=== PATIENT | female | born 1990 | race Caucasian/White ===

== ENCOUNTER 2017-03-12 06:00 | Inpatient (IN) | payer BC ==
[~2017-03-12] VITALS: Ht 167.6 cm; Wt 52.6 kg
--- NOTE | 2017-03-12 06:37 | PHYS DOC ---
Past Medical History Past Medical History: No Pertinent History Past Surgical History: Additional Information: DRINKS DAILY; DRINKS RUM Alcohol Use: Heavy Drug Use: None Adult General Chief Complaint Chief Complaint: ABDOMINAL PAIN HPI HPI Patient is a 27 year old female who presents with abdominal pain to suprapubic area. She states it started prior to 1 AM this morning been getting worse. She states yesterday she had 3 loose stools and took Imodium AD which resolved her loose stools. She states she vomited once and denies any blood in her vomit or stools. She states the pain is sharp and is in the suprapubic area and any palpation makes the pain worse in addition any movement. She states she' s never had pain like this before. She does have vaginal discharge which is normal for her. She states she finished her period a few days ago. She states the pain got severe so she did call 911. She received 50 mics of fentanyl in route. She states she's been once and had a . Review of Systems Review of Systems Constitutional: Denies fever or chills [] Eyes: Denies change in visual acuity, redness, or eye pain [] HENT: Denies nasal congestion or sore throat [] Respiratory: Denies cough or shortness of breath [] Cardiovascular: No additional information not addressed in HPI [] GI: Positive for abdominal pain, nausea, vomiting, denies any bloody stools or diarrhea [] : Denies dysuria or hematuria [] Musculoskeletal: Denies back pain or joint pain [] Integument: Denies rash or skin lesions [] Neurologic: Denies headache, focal weakness or sensory changes [] Endocrine: Denies polyuria or polydipsia [] Current Medications Current Medications Current Medications Medications (Trade) Dose Ordered Sig/Jarad Start Time Stop Time Status Last Admin Dose Admin Info (Do NOT chart on this entry -- for MONITORING) 1 each PRN DAILY PRN 03/12/17 08:00 03/14/17 07:59 Iohexol (Omnipaque 240 Mg/ml) 30 ml 1X ONCE 03/12/17 07:45 03/12/17 07:51 DC Iohexol (Omnipaque 300 Mg/ml) 75 ml 1X ONCE 03/12/17 07:45 03/12/17 07:51 DC 03/12/17 07:45 75 ML Morphine Sulfate 2 mg PRN Q15MIN PRN 03/12/17 06:45 03/13/17 06:44 03/12/17 08:02 2 MG Sodium Chloride 1,000 ml @ 1,000 mls/hr Q1H 03/12/17 07:00 03/12/17 07:59 DC 03/12/17 06:44 1,000 MLS/HR Allergies Allergies Allergies Coded Allergies Type Severity Reaction Last Updated Verified No Known Drug Allergies 03/12/17 No Physical Exam Physical Exam Constitutional: Well developed, well nourished, no acute distress, non-toxic appearance. [] HENT: Normocephalic, atraumatic, bilateral external ears normal, oropharynx moist, no oral exudates, nose normal. [] Eyes: PERRLA, EOMI, conjunctiva normal, no discharge. [] Neck: Normal range of motion, no tenderness, supple, no stridor. [] Cardiovascular:Heart rate regular rhythm, no murmur [] Lungs & Thorax: Bilateral breath sounds clear to auscultation [] Abdomen/pelvic: Bowel sounds hypoactive, soft, tender palpation with voluntary guarding in the right lower quadrant and suprapubic area, obturtor sign negative no masses, no pulsatile masses. Normal external genitalia, tender palpation the left adnexal area, no vaginal bleeding or discharge noted Skin: Warm, dry, no erythema, no rash. [] Back: No tenderness, no CVA tenderness. [] Extremities: No tenderness, no cyanosis, no clubbing, ROM intact, no edema. [] Neurologic: Alert and oriented X 3, normal motor function, normal sensory function, no focal deficits noted. [] Psychologic: Affect normal, judgement normal, mood normal. [] Current Patient Data Vital Signs Vital Signs Date Time Temp Pulse Resp B/P (MAP) Pulse Ox O2 Delivery O2 Flow Rate FiO2 03/12/17 08:02 20 99 03/12/17 06:43 Room Air 03/12/17 06:10 98.2 63 121/56 (77) 98.2 Lab Values Laboratory Tests Test 03/12/17 06:05 03/12/17 06:08 White Blood Count 12.0 x10^3/uL (4.0-11.0) H Red Blood Count 4.55 x10^6/uL (3.50-5.40) Hemoglobin 10.7 g/dL (12.0-15.5) L Hematocrit 33.2 % (36.0-47.0) L Mean Corpuscular Volume 73 fL (79-100) L Mean Corpuscular Hemoglobin 24 pg (25-35) L Mean Corpuscular Hemoglobin Concent 32 g/dL (31-37) Red Cell Distribution Width 17.6 % (11.5-14.5) H Platelet Count 393 x10^3/uL (140-400) Neutrophils (%) (Auto) 75 % (31-73) H Lymphocytes (%) (Auto) 21 % (24-48) L Monocytes (%) (Auto) 4 % (0-9) Eosinophils (%) (Auto) 0 % (0-3) Basophils (%) (Auto) 1 % (0-3) Neutrophils # (Auto) 8.9 x10^3uL (1.8-7.7) H Lymphocytes # (Auto) 2.5 x10^3/uL (1.0-4.8) Monocytes # (Auto) 0.4 x10^3/uL (0.0-1.1) Eosinophils # (Auto) 0.0 x10^3/uL (0.0-0.7) Basophils # (Auto) 0.1 x10^3/uL (0.0-0.2) Urine Collection Type Unknown Urine Color Yellow Urine Clarity Clear Urine pH 6.5 Urine Specific [place] 1.020 Urine Protein Negative mg/dL (NEG-TRACE) Urine Glucose (UA) Negative mg/dL (NEG) Urine Ketones (Stick) Negative mg/dL (NEG) Urine Blood Negative (NEG) Urine Nitrite Negative (NEG) Urine Bilirubin Negative (NEG) Urine Urobilinogen Dipstick 0.2 mg/dL (0.2 mg/dL) Urine Leukocyte Esterase Negative (NEG) Urine RBC Occ /HPF (0-2) Urine WBC Occ /HPF (0-4) Urine Squamous Epithelial Cells Mod /LPF Urine Bacteria 0 /HPF (0-FEW) Urine Mucus Mod /LPF Sodium Level 141 mmol/L (136-145) Potassium Level 3.1 mmol/L (3.5-5.1) L Chloride Level 104 mmol/L (98-107) Carbon Dioxide Level 23 mmol/L (21-32) Anion Gap 14 (6-14) Blood Urea Nitrogen 8 mg/dL (7-20) Creatinine 0.7 mg/dL (0.6-1.0) Estimated GFR (Cockcroft-Gault) 100.4 Glucose Level 107 mg/dL (70-99) H Calcium Level 8.9 mg/dL (8.5-10.1) Total Bilirubin 0.8 mg/dL (0.2-1.0) Direct Bilirubin 0.1 mg/dL (0.0-0.2) Aspartate Amino Transferase (AST) 20 U/L (15-37) Alanine Aminotransferase (ALT) 23 U/L (14-59) Alkaline Phosphatase 45 U/L (46-116) L Creatine Kinase 117 U/L (26-192) Creatine Kinase MB (Mass) 0.8 ng/mL (0.0-3.6) Creatine Kinase MB Relative Index 0.7 % (0-4) Total Protein 6.9 g/dL (6.4-8.2) Albumin 4.0 g/dL (3.4-5.0) Lipase 166 U/L (73-393) Urine Opiates Screen Neg (NEG) Urine Methadone Screen Neg (NEG) Urine Barbiturates Neg (NEG) Urine Phencyclidine Screen Neg (NEG) Urine Amphetamine/Methamphetamine Neg (NEG) Urine Benzodiazepines Screen Neg (NEG) Urine Cocaine Screen Neg (NEG) Urine Cannabinoids Screen Neg (NEG) Urine Ethyl Alcohol Neg (NEG) POC Urine HCG, Qualitative Hcg negative (Negative) Laboratory Tests 03/12/17 06:05 Laboratory Tests 03/12/17 06:05 Microbiology 03/12/17 Wet Prep - Final, Complete EKG EKG [] Radiology/Procedures Radiology/Procedures [facility] [address] [place] [address] IMAGING REPORT Signed PATIENT: YESI MARTINEZ ACCOUNT: [id number] : 1990 LOCATION: ER AGE: 27 SEX: F EXAM STATUS: REG ER ORD. PHYSICIAN: JAMAL MILLAN MD REASON: suprapubic pain PROCEDURE: PELVIS COMPLETE Examination: Ultrasound pelvis History: History of suprapubic pain Comparison: None available Findings: The uterus measures 10.0 x 4.4 x 7.0 cm The endometrium measures 1 cm in thickness. The right ovary measures 3.8 x 2.5 x 3.4 cm. The left ovary measures 3.8 x1.7 x 3.1 cm. Blood identified in the right and left ovaries. The cervix measures 4 cm in length. There is no evidence of free fluid identified in the pelvis. Impression: Unremarkable visualized exam. DICTATED and SIGNED BY: ALIYAH ROBINS MD DATE: 03/12/17645 CC: JAMAL MILLAN MD; NO PCP ~ [facility] [address] [place] [address] IMAGING REPORT Signed PATIENT: YESI MARTINEZ ACCOUNT: [id number] : 1990 LOCATION: ER AGE: 27 SEX: F EXAM STATUS: REG ER ORD. PHYSICIAN: JAMAL MILLAN MD REASON: abd pain PROCEDURE: CT ABD PELV W/ORAL&IV CONTRAST EXAM: CT abdomen/pelvis with contrast. HISTORY: Abdominal pain. TECHNIQUE: Computed tomography of the abdomen and pelvis was performed after the intravenous administration of 75 mL Omnipaque 300. COMPARISON: Today's ultrasound. FINDINGS: Lung windows through the visualized portions of the bases reveal no acute abnormality. Bone windows reveal no suspicious lesions. The liver, gallbladder, pancreas, adrenal glands and spleen are unremarkable. A tiny cyst is noted in the right renal interpolar region. The left kidney is unremarkable. There are no pathologically enlarged lymph nodes. A small amount of free pelvic fluid is likely physiologic. There is questionable mild wall thickening at the cecum. The colon is decompressed. There is no clear small bowel wall thickening. The appendix is not inflamed. IMPRESSION: 1. Correlate for mild colitis. No other cause for pain is identified. *One or more of the following individualized dose reduction techniques were utilized for this examination: 1. Automated exposure control. 2. Adjustment of the mA and/or kV according to patient size. 3. Use of iterative reconstruction technique. DICTATED and SIGNED BY: MORELIA HICKEY MD DATE: 03/12/17935 CC: JAMAL MILLAN MD; NO PCP ~ Impressions: Abdominal pain Course & Med Decision Making Course & Med Decision Making Pertinent Labs and Imaging studies reviewed. (See chart for details) CT scan is concerning for mild colitis without any other acute pathology, her ultrasound of her pelvis does not show any acute abnormalities. She's requiring IV pain meds. She doesn't feel comfortable going home. She started on Cipro Flagyl be admitted to the hospitalist in stable condition at this time. Dragon Disclaimer Dragon Disclaimer This electronic medical record was generated, in whole or in part, using a voice recognition dictation system. Departure Departure Impression: Primary Impression: Abdominal pain Disposition: 09 ADMITTED INPATIENT Admitting Physician: Deepika Corbett Condition: STABLE Referrals: NO PCP (PCP) Problem Qualifiers Primary Impression: Abdominal pain Abdominal location: lower abdomen, unspecified Qualified Codes: R10.30 - Lower abdominal pain, unspecified JAMAL MILLAN MD Mar 12, 2017 06:37
[2017-03-12] MEDS: MORPHINE SULFATE 2 MG/ML DISP.SYRIN. IV/SQ PRN ×2 (06:43→08:02)
[2017-03-12] MEDS ORDERED: IV NORMAL SALINE 1000ML BAG 1,000 ML IV SCH (07:00)
[2017-03-12 07:06] LABS: CALCIUM 8.9 mg/dL (8.5-10.1); CREATININE 0.7 mg/dL (0.6-1.0); GFR 100.4; POTASSIUM 3.1 mmol/L (3.5-5.1)
[2017-03-12 07:09] LABS: BILIRUBIN,URINE NEGATIVE (NEG); GLUCOSE,URINE NEGATIVE (NEG); NITRITE,URINE NEGATIVE (NEG); PH,URINE 6.5; PROTEIN,URINE NEGATIVE (NEG-TRACE); UROBILINOGEN,URINE 0.2 mg/dL (0.2 mg/dL)
[2017-03-12 07:14] LABS: DIRECT BILIRUBIN 0.1 mg/dL (0.0-0.2); TOTAL BILIRUBIN 0.8 mg/dL (0.2-1.0); TOTAL PROTEIN 6.9 g/dL (6.4-8.2)
[2017-03-12 07:16] LABS: BARBITURATES NEG (NEG); BENZODIAZEPINES NEG (NEG); CANNABINOIDS NEG (NEG); COCAINE NEG (NEG); METHADONE NEG (NEG); OPIATES NEG (NEG); PHENCYCLIDINE NEG (NEG)
[2017-03-12 07:17] LABS: BASO # 0.1 x10^3/uL (0.0-0.2); BASO % 1 % (0-3); EOS % 0 % (0-3); HEMATOCRIT 33.2 % (36.0-47.0); HEMOGLOBIN 10.7 g/dL (12.0-15.5); LYMPH # 2.5 x10^3/uL (1.0-4.8); LYMPH % 21 % (24-48); MEAN CORPUSCULAR HEMOGLOBIN 24 pg (25-35); MEAN CORPUSCULAR HGB CONC 32 g/dL (31-37); MEAN CORPUSCULAR VOLUME 73 fL (79-100); MONO % 4 % (0-9); NEUT % 75 % (31-73); PLATELET COUNT 393 x10^3/uL (140-400); RED BLOOD COUNT 4.55 x10^6/uL (3.50-5.40); RED CELL DISTRIBUTION WIDTH 17.6 % (11.5-14.5)
[2017-03-12 07:24] LABS: CKMB MASS 0.8 ng/mL (0.0-3.6)
[2017-03-12 07:35] LABS: BACTERIA,URINE 0 /HPF (0-FEW); RBC,URINE OCC /HPF (0-2); SQUAMOUS EPITHELIAL CELL,UR MOD /LPF; WBC,URINE OCC /HPF (0-4)
[2017-03-12] MEDS ORDERED: IOHEXOL 300 MG/ML 75 ML VIAL IV ONE (07:45)
[2017-03-12] MEDS ORDERED: IOHEXOL 240 MG/ML 50ML VIAL. PO ONE (07:45)
[2017-03-12] MEDS ORDERED: CONTRAST GIVEN MC PRN (08:00)
--- NOTE | 2017-03-12 08:51 | RAD ---
Examination: Ultrasound pelvis History: History of suprapubic pain Comparison: None available Findings: The uterus measures 10.0 x 4.4 x 7.0 cm The endometrium measures 1 cm in thickness. The right ovary measures 3.8 x 2.5 x 3.4 cm. The left ovary measures 3.8 x1.7 x 3.1 cm. Blood identified in the right and left ovaries. The cervix measures 4 cm in length. There is no evidence of free fluid identified in the pelvis. Impression: Unremarkable visualized exam.
--- NOTE | 2017-03-12 09:47 | RAD ---
EXAM: CT abdomen/pelvis with contrast. HISTORY: Abdominal pain. TECHNIQUE: Computed tomography of the abdomen and pelvis was performed after the intravenous administration of 75 mL Omnipaque 300. COMPARISON: Today's ultrasound. FINDINGS: Lung windows through the visualized portions of the bases reveal no acute abnormality. Bone windows reveal no suspicious lesions. The liver, gallbladder, pancreas, adrenal glands and spleen are unremarkable. A tiny cyst is noted in the right renal interpolar region. The left kidney is unremarkable. There are no pathologically enlarged lymph nodes. A small amount of free pelvic fluid is likely physiologic. There is questionable mild wall thickening at the cecum. The colon is decompressed. There is no clear small bowel wall thickening. The appendix is not inflamed. IMPRESSION: 1. Correlate for mild colitis. No other cause for pain is identified. *One or more of the following individualized dose reduction techniques were utilized for this examination: 1. Automated exposure control. 2. Adjustment of the mA and/or kV according to patient size. 3. Use of iterative reconstruction technique.
[2017-03-12] MEDS ORDERED: MORPHINE SULFATE 2 MG/ML DISP.SYRIN. IV PRN (10:15)
[2017-03-12] MEDS ORDERED: ONDANSETRON PF 4 MG/2 ML VIAL. IV PRN (10:15)
[2017-03-12] MEDS ORDERED: CIPROFLOXACIN 400MG PREMIX 200 ML IV ONE (11:00)
[2017-03-12 12:05] VITALS: BP 99/59
[2017-03-12] MEDS ORDERED: POTASSIUM CHLORIDE 20 MEQ TABLET.ER. PO ONE (12:45)
[2017-03-12] MEDS ORDERED: IV NORMAL SALINE 1000ML BAG 1,000 ML IV ONE (12:45)
[2017-03-12] MEDS ORDERED: ACETAMINOPHEN 500 MG TABLET PO PRN (12:45)
[2017-03-12] MEDS ORDERED: chlordiazePOXIDE HCL 25 MG CAPSULE PO PRN (12:45)
--- NOTE | 2017-03-12 12:52 | PDOC1 ---
History and Physical Date of Admission Date of Admission DATE: 03/12/17 TIME: 12:44 Identification/Chief Complaint Chief Complaint lower abd pain Problems: Source Source: Caregiver, Chart review, Patient History of Present Illness History of Present Illness 27 y.o Female, otherwise healthy, no meds, lower abd pain at center near the bladder area at 1 or 2 AM today. NO emesis but had 2 episodes lose stool, non bloody, NO fevers ER CT scan shows mild colitis, US pelvisnormal. Never had similar before, MOprhine helps pain,. Admitted and started on diet by ER Hgb 10, MCv 70s - I was not able to ask about menstrual periods as these labs came in late - eval will still be the same with BEAU work up/panel Daily rum drinker Past Medical History Cardiovascular: No pertinent hx Pulmonary: No pertinent hx GI: No pertinent hx Heme/Onc: No pertinent hx Hepatobiliary: No pertinent hx Psych: No pertinent hx Rheumatologic: No pertinent hx Infectious disease: No pertinent hx ENT: No pertinent hx Renal/: No pertinent hx Endocrine: No pertinent hx Dermatology: No pertinent hx Past Surgical History Past Surgical History: No pertinent history Family History Family History: Hypertension Social History Smoke: No ALCOHOL: other (daily rum) Drugs: None Current Problem List Problem List Problems Medical Problems: (1) Abdominal pain Status: Acute Problems: Current Medications Current Medications Current Medications Morphine Sulfate 2 mg PRN Q15MIN PRN IV/SQ PAIN GREATER THAN 3/10 Last administered on 03/12/17 08:02; Start 03/12/17 at 06:45; Stop 03/13/17 at 06:44 Sodium Chloride 1,000 ml @ 1,000 mls/hr Q1H IV Last administered on 03/12/17 06:44; Start 03/12/17 at 07:00; Stop 03/12/17 at 07:59; Status DC Iohexol (Omnipaque 240 Mg/ml) 30 ml 1X ONCE PO ; Start 03/12/17 at 07:45; Stop 03/12/17 at 07:51; Status DC Iohexol (Omnipaque 300 Mg/ml) 75 ml 1X ONCE IV Last administered on 03/12/17 07:45; Start 03/12/17 at 07:45; Stop 03/12/17 at 07:51; Status DC Info (Do NOT chart on this entry -- for MONITORING) 1 each PRN DAILY PRN MC SEE COMMENTS; Start 03/12/17 at 08:00; Stop 03/14/17 at 07:59 Ondansetron HCl (Zofran) 4 mg PRN Q8HRS PRN IV NAUSEA/VOMITING; Start 03/12/17 at 10:15; Stop 03/13/17 at 10:14 Morphine Sulfate 2 mg PRN Q2HR PRN IV PAIN; Start 03/12/17 at 10:15; Stop 03/13 at 10:14 Ciprofloxacin/ Dextrose 200 ml @ 200 mls/hr Q12HR IV ; Start 03/12/17 at 21:00 Metronidazole 100 ml @ 100 mls/hr Q8HRS IV Last administered on 03/12/17t 10: 54; Start 03/12/17 at 11:00 Ciprofloxacin/ Dextrose 200 ml @ 200 mls/hr 1X ONCE IV ; Start 03/12/17 at 11: 00; Stop 03/12/17 at 11:59; Status DC Allergies Allergies: Coded Allergies: No Known Drug Allergies (Unverified , 03/12/17) ROS Review of System as per HPI only Physical Exam General: Alert, Oriented X3, Cooperative, No acute distress HEENT: Atraumatic, PERRLA, EOMI, Mucous membr. moist/pink Lungs: Clear to auscultation, Normal air movement Heart: S1S2, RRR, no thrills, no gallops, no murmurs Cardiovascular: S1, S2 Abdomen: Soft, Other (tender on suprapubic, lower abd area) Rectal Exam: not examined PELVIC: Nml ext genitalia Extremities: No clubbing, No cyanosis, No edema, Normal pulses, No tenderness/ swelling Skin: No rashes, No breakdown, No significant lesion Neuro: Normal gait, Normal speech, Strength at 5/5 X4 ext, Normal tone, Sensation intact, Cranial nerves 3-12 NL, Reflexes 2+ Psych/Mental Status: Mental status NL, Mood NL Vitals Vitals Vital Signs Date Time Temp Pulse Resp B/P (MAP) Pulse Ox O2 Delivery O2 Flow Rate FiO2 03/12/17 12:05 98.1 69 18 99/59 (72) 92 Room Air 98.1 Labs Labs Laboratory Tests Test 03/12/17 06:05 9/28/17 06:08 White Blood Count 12.0 x10^3/uL (4.0-11.0) Red Blood Count 4.55 x10^6/uL (3.50-5.40) Hemoglobin 10.7 g/dL (12.0-15.5) Hematocrit 33.2 % (36.0-47.0) Mean Corpuscular Volume 73 fL (79-100) Mean Corpuscular Hemoglobin 24 pg (25-35) Mean Corpuscular Hemoglobin Concent 32 g/dL (31-37) Red Cell Distribution Width 17.6 % (11.5-14.5) Platelet Count 393 x10^3/uL (140-400) Neutrophils (%) (Auto) 75 % (31-73) Lymphocytes (%) (Auto) 21 % (24-48) Monocytes (%) (Auto) 4 % (0-9) Eosinophils (%) (Auto) 0 % (0-3) Basophils (%) (Auto) 1 % (0-3) Neutrophils # (Auto) 8.9 x10^3uL (1.8-7.7) Lymphocytes # (Auto) 2.5 x10^3/uL (1.0-4.8) Monocytes # (Auto) 0.4 x10^3/uL (0.0-1.1) Eosinophils # (Auto) 0.0 x10^3/uL (0.0-0.7) Basophils # (Auto) 0.1 x10^3/uL (0.0-0.2) Urine Collection Type Unknown Urine Color Yellow Urine Clarity Clear Urine pH 6.5 Urine Specific [place] 1.020 Urine Protein Negative mg/dL (NEG-TRACE) Urine Glucose (UA) Negative mg/dL (NEG) Urine Ketones (Stick) Negative mg/dL (NEG) Urine Blood Negative (NEG) Urine Nitrite Negative (NEG) Urine Bilirubin Negative (NEG) Urine Urobilinogen Dipstick 0.2 mg/dL (0.2 mg/dL) Urine Leukocyte Esterase Negative (NEG) Urine RBC Occ /HPF (0-2) Urine WBC Occ /HPF (0-4) Urine Squamous Epithelial Cells Mod /LPF Urine Bacteria 0 /HPF (0-FEW) Urine Mucus Mod /LPF Sodium Level 141 mmol/L (136-145) Potassium Level 3.1 mmol/L (3.5-5.1) Chloride Level 104 mmol/L (98-107) Carbon Dioxide Level 23 mmol/L (21-32) Anion Gap 14 (6-14) Blood Urea Nitrogen 8 mg/dL (7-20) Creatinine 0.7 mg/dL (0.6-1.0) Estimated GFR (Cockcroft-Gault) 100.4 Glucose Level 107 mg/dL (70-99) Calcium Level 8.9 mg/dL (8.5-10.1) Total Bilirubin 0.8 mg/dL (0.2-1.0) Direct Bilirubin 0.1 mg/dL (0.0-0.2) Aspartate Amino Transf (AST/SGOT) 20 U/L (15-37) Alanine Aminotransferase (ALT/SGPT) 23 U/L (14-59) Alkaline Phosphatase 45 U/L (46-116) Creatine Kinase 117 U/L (26-192) Creatine Kinase MB (Mass) 0.8 ng/mL (0.0-3.6) Creatine Kinase MB Relative Index 0.7 % (0-4) Total Protein 6.9 g/dL (6.4-8.2) Albumin 4.0 g/dL (3.4-5.0) Lipase 166 U/L (73-393) Urine Opiates Screen Neg (NEG) Urine Methadone Screen Neg (NEG) Urine Barbiturates Neg (NEG) Urine Phencyclidine Screen Neg (NEG) Urine Amphetamine/Methamphetamine Neg (NEG) Urine Benzodiazepines Screen Neg (NEG) Urine Cocaine Screen Neg (NEG) Urine Cannabinoids Screen Neg (NEG) Urine Ethyl Alcohol Neg (NEG) Bedside Urine HCG, Qualitative Hcg negative (Negative) Laboratory Tests Test 03/12/17 06:05 03/12/17 06:08 White Blood Count 12.0 x10^3/uL (4.0-11.0) Red Blood Count 4.55 x10^6/uL (3.50-5.40) Hemoglobin 10.7 g/dL (12.0-15.5) Hematocrit 33.2 % (36.0-47.0) Mean Corpuscular Volume 73 fL (79-100) Mean Corpuscular Hemoglobin 24 pg (25-35) Mean Corpuscular Hemoglobin Concent 32 g/dL (31-37) Red Cell Distribution Width 17.6 % (11.5-14.5) Platelet Count 393 x10^3/uL (140-400) Neutrophils (%) (Auto) 75 % (31-73) Lymphocytes (%) (Auto) 21 % (24-48) Monocytes (%) (Auto) 4 % (0-9) Eosinophils (%) (Auto) 0 % (0-3) Basophils (%) (Auto) 1 % (0-3) Neutrophils # (Auto) 8.9 x10^3uL (1.8-7.7) Lymphocytes # (Auto) 2.5 x10^3/uL (1.0-4.8) Monocytes # (Auto) 0.4 x10^3/uL (0.0-1.1) Eosinophils # (Auto) 0.0 x10^3/uL (0.0-0.7) Basophils # (Auto) 0.1 x10^3/uL (0.0-0.2) Urine Collection Type Unknown Urine Color Yellow Urine Clarity Clear Urine pH 6.5 Urine Specific [place] 1.020 Urine Protein Negative mg/dL (NEG-TRACE) Urine Glucose (UA) Negative mg/dL (NEG) Urine Ketones (Stick) Negative mg/dL (NEG) Urine Blood Negative (NEG) Urine Nitrite Negative (NEG) Urine Bilirubin Negative (NEG) Urine Urobilinogen Dipstick 0.2 mg/dL (0.2 mg/dL) Urine Leukocyte Esterase Negative (NEG) Urine RBC Occ /HPF (0-2) Urine WBC Occ /HPF (0-4) Urine Squamous Epithelial Cells Mod /LPF Urine Bacteria 0 /HPF (0-FEW) Urine Mucus Mod /LPF Sodium Level 141 mmol/L (136-145) Potassium Level 3.1 mmol/L (3.5-5.1) Chloride Level 104 mmol/L (98-107) Carbon Dioxide Level 23 mmol/L (21-32) Anion Gap 14 (6-14) Blood Urea Nitrogen 8 mg/dL (7-20) Creatinine 0.7 mg/dL (0.6-1.0) Estimated GFR (Cockcroft-Gault) 100.4 Glucose Level 107 mg/dL (70-99) Calcium Level 8.9 mg/dL (8.5-10.1) Total Bilirubin 0.8 mg/dL (0.2-1.0) Direct Bilirubin 0.1 mg/dL (0.0-0.2) Aspartate Amino Transf (AST/SGOT) 20 U/L (15-37) Alanine Aminotransferase (ALT/SGPT) 23 U/L (14-59) Alkaline Phosphatase 45 U/L (46-116) Creatine Kinase 117 U/L (26-192) Creatine Kinase MB (Mass) 0.8 ng/mL (0.0-3.6) Creatine Kinase MB Relative Index 0.7 % (0-4) Total Protein 6.9 g/dL (6.4-8.2) Albumin 4.0 g/dL (3.4-5.0) Lipase 166 U/L (73-393) Urine Opiates Screen Neg (NEG) Urine Methadone Screen Neg (NEG) Urine Barbiturates Neg (NEG) Urine Phencyclidine Screen Neg (NEG) Urine Amphetamine/Methamphetamine Neg (NEG) Urine Benzodiazepines Screen Neg (NEG) Urine Cocaine Screen Neg (NEG) Urine Cannabinoids Screen Neg (NEG) Urine Ethyl Alcohol Neg (NEG) Bedside Urine HCG, Qualitative Hcg negative (Negative) VTE Prophylaxis Ordered VTE Prophylaxis Devices: Yes VTE Pharmacological Prophylaxi: Yes Assessment/Plan Assessment/Plan 1. MIld colitis 2. Micorcytic anemia 3. Signif etoh drinker (rum everyday) PLAN: Admit 2 MN IV abx Ok for reg diet if not vomting IVF x 1 Check SR Check BEAU panel CIWA seen at SANIA CARPENTER MD Mar 12, 2017 12:52
[2017-03-12 13:05] LABS: % SAT IRON 5 % (15-34); IRON,SERUM 24 ug/dL (50-170)
[2017-03-12] MEDS: ONDANSETRON PF 4 MG/2 ML VIAL. IV PRN ×2 (13:12→21:30)
--- NOTE | 2017-03-12 14:10 | PDOC2 ---
GI CONSULT Reason For Consult: Colitis HPI: HPI: 27 y/o female admitted through the ER. Has actually been ill w/ GI symptoms for a few months. Has had intermittent abdominal pain every few weeks ( generally lower - worse w/ movement or prior to stooling, better when laying on back), occasional vomiting, and irregular bowel habits (describes up to 5-6 watery stools daily or sometimes loose stools or sometimes no stools for several days). Had a "black stool" one time about 2 weeks ago. Has also had heartburn. Was previously taking ibuprofen 600mg QD for migraines. Saw her PCP , was started on Prilosec QD for suspected "ulcer" about 2 months ago. Has helped heartburn. Has been eating well ("a lot") but has lost ~11 pounds. Yesterday she had three loose stools, took an Imodium, then developed severe lower abdominal pain (more intense than usual) around 1:00 a.m. Emesis x 1 related to pain. Her family was ill w/ sinus congestion and diarrhea about 2 weeks ago. No recent atbx use or travel. Lifelong h/o anemia ("since I was a baby"), takes iron intermittently but stops 2/2 heartburn. Believes saw a press secretary years ago. Has heavy periods ("super" tampons every 2 hours) for 6 -7 days every 28 days. No hematemesis or hematochezia. No previous EGD or colonoscopy. No liver, gallbladder, or pancreas history. Labs: WBC 12, Hgb 10.7 w/ low indices and elevated RDW, K+ 3.1, iron deficient. CT w/ questionable mild wall thickening at the cecum. Admitted on IV atbx ( Cipro, Flagyl) and clear liquid diet. PMH: PMH: GERD, anemia, scoliosis/back pain FH: Family History: No pertinent hx (no IBD or GI cancers) Social History: Smoke: No ALCOHOL: other (drinks rum daily) Drugs: None ROS: GEN: Denies fevers, chills, sweats HEENT: +sinus congestion 2 weeks ago CV: Denies chest pain RESP: Denies shortness of air, cough GI: Per HPI : Denies hematuria, dysuria ENDO: +weight loss NEURO: +migraines MSK: +back pain SKIN: Denies jaundice, pruritus Vitals: Vitals: Vital Signs Date Time Temp Pulse Resp B/P (MAP) Pulse Ox O2 Delivery O2 Flow Rate FiO2 03/12/17 13:29 Room Air 03/12/17 12:49 92 03/12/17 12:05 98.1 69 18 99/59 (72) 98.1 Labs: Labs: Laboratory Tests Test 03/12/17 06:00 03/12/17 06:05 03/12/17 06:08 Iron Level 24 ug/dL (50-170) Total Iron Binding Capacity 437 ug/dL (250-450) Iron Saturation 5 % (15-34) White Blood Count 12.0 x10^3/uL (4.0-11.0) Red Blood Count 4.55 x10^6/uL (3.50-5.40) Hemoglobin 10.7 g/dL (12.0-15.5) Hematocrit 33.2 % (36.0-47.0) Mean Corpuscular Volume 73 fL (79-100) Mean Corpuscular Hemoglobin 24 pg (25-35) Mean Corpuscular Hemoglobin Concent 32 g/dL (31-37) Red Cell Distribution Width 17.6 % (11.5-14.5) Platelet Count 393 x10^3/uL (140-400) Neutrophils (%) (Auto) 75 % (31-73) Lymphocytes (%) (Auto) 21 % (24-48) Monocytes (%) (Auto) 4 % (0-9) Eosinophils (%) (Auto) 0 % (0-3) Basophils (%) (Auto) 1 % (0-3) Neutrophils # (Auto) 8.9 x10^3uL (1.8-7.7) Lymphocytes # (Auto) 2.5 x10^3/uL (1.0-4.8) Monocytes # (Auto) 0.4 x10^3/uL (0.0-1.1) Eosinophils # (Auto) 0.0 x10^3/uL (0.0-0.7) Basophils # (Auto) 0.1 x10^3/uL (0.0-0.2) Urine Collection Type Unknown Urine Color Yellow Urine Clarity Clear Urine pH 6.5 Urine Specific [place] 1.020 Urine Protein Negative mg/dL (NEG-TRACE) Urine Glucose (UA) Negative mg/dL (NEG) Urine Ketones (Stick) Negative mg/dL (NEG) Urine Blood Negative (NEG) Urine Nitrite Negative (NEG) Urine Bilirubin Negative (NEG) Urine Urobilinogen Dipstick 0.2 mg/dL (0.2 mg/dL) Urine Leukocyte Esterase Negative (NEG) Urine RBC Occ /HPF (0-2) Urine WBC Occ /HPF (0-4) Urine Squamous Epithelial Cells Mod /LPF Urine Bacteria 0 /HPF (0-FEW) Urine Mucus Mod /LPF Sodium Level 141 mmol/L (136-145) Potassium Level 3.1 mmol/L (3.5-5.1) Chloride Level 104 mmol/L (98-107) Carbon Dioxide Level 23 mmol/L (21-32) Anion Gap 14 (6-14) Blood Urea Nitrogen 8 mg/dL (7-20) Creatinine 0.7 mg/dL (0.6-1.0) Estimated GFR (Cockcroft-Gault) 100.4 Glucose Level 107 mg/dL (70-99) Calcium Level 8.9 mg/dL (8.5-10.1) Total Bilirubin 0.8 mg/dL (0.2-1.0) Direct Bilirubin 0.1 mg/dL (0.0-0.2) Aspartate Amino Transf (AST/SGOT) 20 U/L (15-37) Alanine Aminotransferase (ALT/SGPT) 23 U/L (14-59) Alkaline Phosphatase 45 U/L (46-116) Creatine Kinase 117 U/L (26-192) Creatine Kinase MB (Mass) 0.8 ng/mL (0.0-3.6) Creatine Kinase MB Relative Index 0.7 % (0-4) Total Protein 6.9 g/dL (6.4-8.2) Albumin 4.0 g/dL (3.4-5.0) Lipase 166 U/L (73-393) Urine Opiates Screen Neg (NEG) Urine Methadone Screen Neg (NEG) Urine Barbiturates Neg (NEG) Urine Phencyclidine Screen Neg (NEG) Urine Amphetamine/Methamphetamine Neg (NEG) Urine Benzodiazepines Screen Neg (NEG) Urine Cocaine Screen Neg (NEG) Urine Cannabinoids Screen Neg (NEG) Urine Ethyl Alcohol Neg (NEG) Bedside Urine HCG, Qualitative Hcg negative (Negative) Allergies: Coded Allergies: No Known Drug Allergies (Unverified , 03/12/17) Medications: Current Medications Medications (Trade) Dose Ordered Sig/Jarad Route PRN Reason Start Time Stop Time Status Last Admin Dose Admin Morphine Sulfate 2 mg PRN Q15MIN PRN IV/SQ PAIN GREATER THAN 3/10 03/12/17 06:45 03/12/17 13:24 DC 03/12/17 08:02 Sodium Chloride 1,000 ml @ 1,000 mls/hr Q1H IV 03/12/17 07:00 03/12/17 07:59 DC 03/12/17 06:44 Iohexol (Omnipaque 300 Mg/ml) 75 ml 1X ONCE IV 03/12/17 07:45 03/12/17 07:51 DC 03/12/17 07:45 Morphine Sulfate 2 mg PRN Q2HR PRN IV PAIN 03/12/17 10:15 03/13/17 10:14 03/12/17 12:49 Metronidazole 100 ml @ 100 mls/hr Q8HRS IV 03/12/17 11:00 03/12/17 10:54 Ondansetron HCl (Zofran) 4 mg PRN Q6HRS PRN IV NAUSEA/VOMITING 03/12/17 12:45 03/13/17 12:44 03/12/17 13:12 Imaging: Imaging: Pelv US Impression: Unremarkable visualized exam. CT A/P w/ oral and IV contrast FINDINGS: Lung windows through the visualized portions of the bases reveal no acute abnormality. Bone windows reveal no suspicious lesions. The liver, gallbladder, pancreas, adrenal glands and spleen are unremarkable. A tiny cyst is noted in the right renal interpolar region. The left kidney is unremarkable. There are no pathologically enlarged lymph nodes. A small amount of free pelvic fluid is likely physiologic. There is questionable mild wall thickening at the cecum. The colon is decompressed. There is no clear small bowel wall thickening. The appendix is not inflamed. IMPRESSION: 1. Correlate for mild colitis. No other cause for pain is identified. PE: GEN: NAD HEENT: Atraumatic, PERRL LUNGS: CTAB HEART: RRR ABD: BS+, diffusely tender - moreso BLQ and suprapubic EXTREMITY: No edema SKIN: No rashes, no jaundice NEURO/PSYCH: A & O 3 A/P: A/P: Abd pain, vomiting, irregular bowel habits, weight loss -seems intermittent symptoms for several months, now pain more severe GERD -started Prilosec 2 months ago H/o NSAID use -for migraines, now trying to stay away from ibuprofen BEAU -apparently lifelong history w/ intermittent use of iron -heavy periods Abnormal CT -questionable mild wall thickening at cecum -- Will review w/ Dr. Henderson. Add PPI. MIGNON COLEY Mar 12, 2017 14:10
[2017-03-12 15:00] VITALS: BP 94/55
[2017-03-12] MEDS: THIAMINE 100 MG TABLET. PO SCH (16:03)
[2017-03-12] MEDS: PANTOPRAZOLE 40 MG TABLET.DR. PO SCH (16:03)
[2017-03-12] MEDS: FOLIC ACID 1 MG TABLET. PO SCH (16:03)
[2017-03-12] MEDS: VITAMIN B12,B9,B6 COMPLEX 1 TABLET. PO SCH (16:03)
[2017-03-12 19:00] VITALS: BP 103/63
[2017-03-12] MEDS: oxyCODONE/APAP 5/325 1 TAB TABLET PO PRN (20:02)
[2017-03-12] MEDS: CIPROFLOXACIN 400MG PREMIX 200 ML IV SCH (20:58)
[2017-03-12 23:00] VITALS: BP 94/55
[2017-03-13 03:00] VITALS: BP 92/54
[2017-03-13] MEDS: ONDANSETRON PF 4 MG/2 ML VIAL. IV PRN ×2 (06:20→13:38)
[2017-03-13] MEDS: PANTOPRAZOLE 40 MG TABLET.DR. PO SCH (06:23)
[2017-03-13 06:48] LABS: BASO % 1 % (0-3); EOS % 0 % (0-3); HEMATOCRIT 28.9 % (36.0-47.0); HEMOGLOBIN 9.3 g/dL (12.0-15.5); LYMPH # 2.2 x10^3/uL (1.0-4.8); LYMPH % 26 % (24-48); MEAN CORPUSCULAR HEMOGLOBIN 24 pg (25-35); MEAN CORPUSCULAR HGB CONC 32 g/dL (31-37); MEAN CORPUSCULAR VOLUME 75 fL (79-100); MONO % 5 % (0-9); NEUT % 68 % (31-73); PLATELET COUNT 280 x10^3/uL (140-400); RED BLOOD COUNT 3.88 x10^6/uL (3.50-5.40); RED CELL DISTRIBUTION WIDTH 17.2 % (11.5-14.5); WHITE BLOOD COUNT 8.6 x10^3/uL (4.0-11.0)
[2017-03-13 07:00] VITALS: BP 94/52
[2017-03-13 07:23] LABS: ALBUMIN 3.1 g/dL (3.4-5.0); ALBUMIN/GLOBULIN RATIO 1.1 (1.0-1.7); CALCIUM 8.5 mg/dL (8.5-10.1); CREATININE 0.5 mg/dL (0.6-1.0); POTASSIUM 3.8 mmol/L (3.5-5.1)
[2017-03-13] MEDS: THIAMINE 100 MG TABLET. PO SCH (08:58)
[2017-03-13] MEDS: FOLIC ACID 1 MG TABLET. PO SCH (08:58)
[2017-03-13] MEDS: VITAMIN B12,B9,B6 COMPLEX 1 TABLET. PO SCH (08:59)
[2017-03-13] MEDS: CIPROFLOXACIN 400MG PREMIX 200 ML IV SCH (08:59)
--- NOTE | 2017-03-13 09:48 | PDOC ---
Subjective: Subjective: Pain better. No stools. Would like to eat more. Objective: Vital Signs: Vital Signs Date Time Temp Pulse Resp B/P (MAP) Pulse Ox O2 Delivery O2 Flow Rate FiO2 03/13/17 07:00 97.9 53 18 94/52 (66) 98 Room Air 97.9 Labs: Laboratory Tests Test 03/13/17 05:45 White Blood Count 8.6 x10^3/uL Red Blood Count 3.88 x10^6/uL Hemoglobin 9.3 g/dL Hematocrit 28.9 % Mean Corpuscular Volume 75 fL Mean Corpuscular Hemoglobin 24 pg Mean Corpuscular Hemoglobin Concent 32 g/dL Red Cell Distribution Width 17.2 % Platelet Count 280 x10^3/uL Neutrophils (%) (Auto) 68 % Lymphocytes (%) (Auto) 26 % Monocytes (%) (Auto) 5 % Eosinophils (%) (Auto) 0 % Basophils (%) (Auto) 1 % Neutrophils # (Auto) 5.9 x10^3uL Lymphocytes # (Auto) 2.2 x10^3/uL Monocytes # (Auto) 0.5 x10^3/uL Eosinophils # (Auto) 0.0 x10^3/uL Basophils # (Auto) 0.0 x10^3/uL Sodium Level 143 mmol/L Potassium Level 3.8 mmol/L Chloride Level 109 mmol/L Carbon Dioxide Level 26 mmol/L Anion Gap 8 Blood Urea Nitrogen 5 mg/dL Creatinine 0.5 mg/dL Estimated GFR (Cockcroft-Gault) 148.0 BUN/Creatinine Ratio 10 Glucose Level 83 mg/dL Calcium Level 8.5 mg/dL Total Bilirubin 1.0 mg/dL Aspartate Amino Transf (AST/SGOT) 16 U/L Alanine Aminotransferase (ALT/SGPT) 15 U/L Alkaline Phosphatase 37 U/L Total Protein 6.0 g/dL Albumin 3.1 g/dL Albumin/Globulin Ratio 1.1 PE: GEN: NAD LUNGS: clear HEART: RRR ABD: BS+, slurry control tender - mostly BLQ/suprapubic NEURO/PSYCH: A & O 3 A/P: Abd pain, vomiting, irregular bowel habits, weight loss -for several months -CT w/ questionable mild wall thickening at cecum -GERD on PPI, previous NSAID use BEAU -apparently lifelong history w/ intermittent use of iron -heavy periods, normal pelv US -- On IV atbx - change to PO soon? ADAT. Continue PPI. MIGNON COLEY Mar 13, 2017 09:48
[2017-03-13 11:00] VITALS: BP 105/61
[2017-03-13] MEDS: oxyCODONE/APAP 5/325 1 TAB TABLET PO PRN (11:27)
[2017-03-13] MEDS ORDERED: METOCLOPRAMIDE HCL 10 MG/2 ML VIAL. IV PRN (13:30)
--- NOTE | 2017-03-13 14:06 | PDOC ---
PROGRESS NOTES Chief Complaint Chief Complaint Abd pain ASSESSMENT AND PLAN: 1. Abd pain: improved; CT c/w colitis; pelvic US WNL 2. N/V: appeared to have resolved in AM, but recurrent post lunch. with loss of bowel control/diarrhea. appreciate GI input 3. EtOH abuse: no W/D sx at this time. CIWA 4. Anemia: microcytic. 2/2 menorrhagia, c/w iron deficiency by iron labs. IV venofer x1, then PO daily iron 5. Dispo: not quite ready yet, although motivated History of Present Illness History of Present Illness very nauseous after eating 1/2 of lunch tray, vomiting shortly thereafter. Vitals Vitals Vital Signs Date Time Temp Pulse Resp B/P (MAP) Pulse Ox O2 Delivery O2 Flow Rate FiO2 03/13/17 13:40 100 Room Air 03/13/17 11:00 98.2 64 16 105/61 (76) 98.2 Physical Exam General: Alert, Oriented X3, Cooperative, No acute distress Heart: Regular rate Lungs: Clear Abdomen: Normal bowel sounds, Soft, Other (tender on suprapubic, lower abd area ) Extremities: No edema Skin: No rashes Labs LABS Laboratory Tests Test 03/13/17 05:45 White Blood Count 8.6 x10^3/uL (4.0-11.0) Red Blood Count 3.88 x10^6/uL (3.50-5.40) Hemoglobin 9.3 g/dL (12.0-15.5) Hematocrit 28.9 % (36.0-47.0) Mean Corpuscular Volume 75 fL (79-100) Mean Corpuscular Hemoglobin 24 pg (25-35) Mean Corpuscular Hemoglobin Concent 32 g/dL (31-37) Red Cell Distribution Width 17.2 % (11.5-14.5) Platelet Count 280 x10^3/uL (140-400) Neutrophils (%) (Auto) 68 % (31-73) Lymphocytes (%) (Auto) 26 % (24-48) Monocytes (%) (Auto) 5 % (0-9) Eosinophils (%) (Auto) 0 % (0-3) Basophils (%) (Auto) 1 % (0-3) Neutrophils # (Auto) 5.9 x10^3uL (1.8-7.7) Lymphocytes # (Auto) 2.2 x10^3/uL (1.0-4.8) Monocytes # (Auto) 0.5 x10^3/uL (0.0-1.1) Eosinophils # (Auto) 0.0 x10^3/uL (0.0-0.7) Basophils # (Auto) 0.0 x10^3/uL (0.0-0.2) Sodium Level 143 mmol/L (136-145) Potassium Level 3.8 mmol/L (3.5-5.1) Chloride Level 109 mmol/L (98-107) Carbon Dioxide Level 26 mmol/L (21-32) Anion Gap 8 (6-14) Blood Urea Nitrogen 5 mg/dL (7-20) Creatinine 0.5 mg/dL (0.6-1.0) Estimated GFR (Cockcroft-Gault) 148.0 BUN/Creatinine Ratio 10 (6-20) Glucose Level 83 mg/dL (70-99) Calcium Level 8.5 mg/dL (8.5-10.1) Total Bilirubin 1.0 mg/dL (0.2-1.0) Aspartate Amino Transf (AST/SGOT) 16 U/L (15-37) Alanine Aminotransferase (ALT/SGPT) 15 U/L (14-59) Alkaline Phosphatase 37 U/L (46-116) Total Protein 6.0 g/dL (6.4-8.2) Albumin 3.1 g/dL (3.4-5.0) Albumin/Globulin Ratio 1.1 (1.0-1.7) MOY SIM MD Mar 13, 2017 14:06
[2017-03-13 15:00] VITALS: BP 99/56
[2017-03-13 19:00] VITALS: BP 97/55
[2017-03-13] MEDS: PROCHLORPERAZINE 10 MG/2 ML VIAL. IV PRN (20:14)
[2017-03-13] MEDS: CIPROFLOXACIN HCL 250 MG TABLET. PO SCH (21:02)
[2017-03-13 23:00] VITALS: BP 110/61
[2017-03-14] MEDS: PROCHLORPERAZINE 10 MG/2 ML VIAL. IV PRN ×2 (02:18→08:08)
[2017-03-14 03:00] VITALS: BP 100/52
[2017-03-14 05:02] LABS: BASO % 1 % (0-3); EOS % 1 % (0-3); HEMATOCRIT 28.4 % (36.0-47.0); HEMOGLOBIN 9.1 g/dL (12.0-15.5); LYMPH # 1.2 x10^3/uL (1.0-4.8); LYMPH % 14 % (24-48); MEAN CORPUSCULAR HEMOGLOBIN 24 pg (25-35); MEAN CORPUSCULAR HGB CONC 32 g/dL (31-37); MEAN CORPUSCULAR VOLUME 75 fL (79-100); MONO % 5 % (0-9); NEUT % 80 % (31-73); PLATELET COUNT 258 x10^3/uL (140-400); RED BLOOD COUNT 3.77 x10^6/uL (3.50-5.40); RED CELL DISTRIBUTION WIDTH 17.3 % (11.5-14.5); WHITE BLOOD COUNT 8.7 x10^3/uL (4.0-11.0)
[2017-03-14 05:26] LABS: ALBUMIN 3.2 g/dL (3.4-5.0); ALBUMIN/GLOBULIN RATIO 1.1 (1.0-1.7); CALCIUM 8.2 mg/dL (8.5-10.1); CREATININE 0.6 mg/dL (0.6-1.0); GFR 119.9; MAGNESIUM 1.7 mg/dL (1.8-2.4); POTASSIUM 3.3 mmol/L (3.5-5.1); TOTAL BILIRUBIN 0.8 mg/dL (0.2-1.0)
[2017-03-14] MEDS: PANTOPRAZOLE 40 MG TABLET.DR. PO SCH (06:30)
[2017-03-14 07:00] VITALS: BP 109/64
[2017-03-14] MEDS: THIAMINE 100 MG TABLET. PO SCH (09:00)
[2017-03-14] MEDS: FOLIC ACID 1 MG TABLET. PO SCH (09:00)
[2017-03-14] MEDS: CIPROFLOXACIN HCL 250 MG TABLET. PO SCH ×2 (09:00→21:05)
[2017-03-14] MEDS: VITAMIN B12,B9,B6 COMPLEX 1 TABLET. PO SCH (09:00)
[2017-03-14 11:00] VITALS: BP 99/49
--- NOTE | 2017-03-14 11:51 | PDOC ---
G I PROGRESS NOTE Reason for Follow-up Abd pain/N/V/D Subjective Still nauseated/less diarrhea Physical Exam Lungs clear CV S1 S2 ABD +BS, soft, mild tenderness Review of Relevant I have reviewed the following items daisy (where applicable) has been applied. Labs Laboratory Tests Test 03/13/17 05:45 03/13/17 13:25 03/14/17 04:40 White Blood Count 8.6 x10^3/uL (4.0-11.0) 8.7 x10^3/uL (4.0-11.0) Red Blood Count 3.88 x10^6/uL (3.50-5.40) 3.77 x10^6/uL (3.50-5.40) Hemoglobin 9.3 g/dL (12.0-15.5) 9.1 g/dL (12.0-15.5) Hematocrit 28.9 % (36.0-47.0) 28.4 % (36.0-47.0) Mean Corpuscular Volume 75 fL (79-100) 75 fL (79-100) Mean Corpuscular Hemoglobin 24 pg (25-35) 24 pg (25-35) Mean Corpuscular Hemoglobin Concent 32 g/dL (31-37) 32 g/dL (31-37) Red Cell Distribution Width 17.2 % (11.5-14.5) 17.3 % (11.5-14.5) Platelet Count 280 x10^3/uL (140-400) 258 x10^3/uL (140-400) Neutrophils (%) (Auto) 68 % (31-73) 80 % (31-73) Lymphocytes (%) (Auto) 26 % (24-48) 14 % (24-48) Monocytes (%) (Auto) 5 % (0-9) 5 % (0-9) Eosinophils (%) (Auto) 0 % (0-3) 1 % (0-3) Basophils (%) (Auto) 1 % (0-3) 1 % (0-3) Neutrophils # (Auto) 5.9 x10^3uL (1.8-7.7) 7.0 x10^3uL (1.8-7.7) Lymphocytes # (Auto) 2.2 x10^3/uL (1.0-4.8) 1.2 x10^3/uL (1.0-4.8) Monocytes # (Auto) 0.5 x10^3/uL (0.0-1.1) 0.4 x10^3/uL (0.0-1.1) Eosinophils # (Auto) 0.0 x10^3/uL (0.0-0.7) 0.1 x10^3/uL (0.0-0.7) Basophils # (Auto) 0.0 x10^3/uL (0.0-0.2) 0.0 x10^3/uL (0.0-0.2) Sodium Level 143 mmol/L (136-145) 139 mmol/L (136-145) Potassium Level 3.8 mmol/L (3.5-5.1) 3.3 mmol/L (3.5-5.1) Chloride Level 109 mmol/L (98-107) 105 mmol/L (98-107) Carbon Dioxide Level 26 mmol/L (21-32) 23 mmol/L (21-32) Anion Gap 8 (6-14) 11 (6-14) Blood Urea Nitrogen 5 mg/dL (7-20) 6 mg/dL (7-20) Creatinine 0.5 mg/dL (0.6-1.0) 0.6 mg/dL (0.6-1.0) Estimated GFR (Cockcroft-Gault) 148.0 119.9 BUN/Creatinine Ratio 10 (6-20) 10 (6-20) Glucose Level 83 mg/dL (70-99) 68 mg/dL (70-99) Calcium Level 8.5 mg/dL (8.5-10.1) 8.2 mg/dL (8.5-10.1) Total Bilirubin 1.0 mg/dL (0.2-1.0) 0.8 mg/dL (0.2-1.0) Aspartate Amino Transf (AST/SGOT) 16 U/L (15-37) 13 U/L (15-37) Alanine Aminotransferase (ALT/SGPT) 15 U/L (14-59) 18 U/L (14-59) Alkaline Phosphatase 37 U/L (46-116) 37 U/L (46-116) Total Protein 6.0 g/dL (6.4-8.2) 6.0 g/dL (6.4-8.2) Albumin 3.1 g/dL (3.4-5.0) 3.2 g/dL (3.4-5.0) Albumin/Globulin Ratio 1.1 (1.0-1.7) 1.1 (1.0-1.7) Clostridium difficile Toxin (PCR) Negative (Negative) Magnesium Level 1.7 mg/dL (1.8-2.4) Laboratory Tests Test 03/13/17 13:25 03/14/17 04:40 Clostridium difficile Toxin (PCR) Negative (Negative) White Blood Count 8.7 x10^3/uL (4.0-11.0) Red Blood Count 3.77 x10^6/uL (3.50-5.40) Hemoglobin 9.1 g/dL (12.0-15.5) Hematocrit 28.4 % (36.0-47.0) Mean Corpuscular Volume 75 fL (79-100) Mean Corpuscular Hemoglobin 24 pg (25-35) Mean Corpuscular Hemoglobin Concent 32 g/dL (31-37) Red Cell Distribution Width 17.3 % (11.5-14.5) Platelet Count 258 x10^3/uL (140-400) Neutrophils (%) (Auto) 80 % (31-73) Lymphocytes (%) (Auto) 14 % (24-48) Monocytes (%) (Auto) 5 % (0-9) Eosinophils (%) (Auto) 1 % (0-3) Basophils (%) (Auto) 1 % (0-3) Neutrophils # (Auto) 7.0 x10^3uL (1.8-7.7) Lymphocytes # (Auto) 1.2 x10^3/uL (1.0-4.8) Monocytes # (Auto) 0.4 x10^3/uL (0.0-1.1) Eosinophils # (Auto) 0.1 x10^3/uL (0.0-0.7) Basophils # (Auto) 0.0 x10^3/uL (0.0-0.2) Sodium Level 139 mmol/L (136-145) Potassium Level 3.3 mmol/L (3.5-5.1) Chloride Level 105 mmol/L (98-107) Carbon Dioxide Level 23 mmol/L (21-32) Anion Gap 11 (6-14) Blood Urea Nitrogen 6 mg/dL (7-20) Creatinine 0.6 mg/dL (0.6-1.0) Estimated GFR (Cockcroft-Gault) 119.9 BUN/Creatinine Ratio 10 (6-20) Glucose Level 68 mg/dL (70-99) Calcium Level 8.2 mg/dL (8.5-10.1) Magnesium Level 1.7 mg/dL (1.8-2.4) Total Bilirubin 0.8 mg/dL (0.2-1.0) Aspartate Amino Transf (AST/SGOT) 13 U/L (15-37) Alanine Aminotransferase (ALT/SGPT) 18 U/L (14-59) Alkaline Phosphatase 37 U/L (46-116) Total Protein 6.0 g/dL (6.4-8.2) Albumin 3.2 g/dL (3.4-5.0) Albumin/Globulin Ratio 1.1 (1.0-1.7) Microbiology 03/12/17 Wet Prep - Final, Complete Medications Current Medications Morphine Sulfate 2 mg PRN Q15MIN PRN IV/SQ PAIN GREATER THAN 3/10 Last administered on 03/12/17 08:02; Start 03/12/17 at 06:45; Stop 03/12/17 at 13:24 ; Status DC Sodium Chloride 1,000 ml @ 1,000 mls/hr Q1H IV Last administered on 03/12/17 06:44; Start 03/12/17 at 07:00; Stop 03/12/17 at 07:59; Status DC Iohexol (Omnipaque 240 Mg/ml) 30 ml 1X ONCE PO ; Start 03/12/17 at 07:45; Stop 03/12/17 at 07:51; Status DC Iohexol (Omnipaque 300 Mg/ml) 75 ml 1X ONCE IV Last administered on 03/12/17 07:45; Start 03/12/17 at 07:45; Stop 03/12/17 at 07:51; Status DC Info (Do NOT chart on this entry -- for MONITORING) 1 each PRN DAILY PRN MC SEE COMMENTS; Start 03/12/17 at 08:00; Stop 03/14/17 at 07:59; Status DC Ondansetron HCl (Zofran) 4 mg PRN Q8HRS PRN IV NAUSEA/VOMITING; Start 03/12/17 at 10:15; Stop 03/12/17 at 12:44; Status DC Morphine Sulfate 2 mg PRN Q2HR PRN IV PAIN Last administered on 03/12/17 12:49 ; Start 03/12/17 at 10:15; Stop 03/13/17 at 10:14; Status DC Ciprofloxacin/ Dextrose 200 ml @ 200 mls/hr Q12HR IV Last administered on 03/13 08:59; Start 03/12/17 at 21:00; Stop 03/13/17 at 17:46; Status DC Metronidazole 100 ml @ 100 mls/hr Q8HRS IV Last administered on 03/14/17 06: 30; Start 03/12/17 at 11:00 Ciprofloxacin/ Dextrose 200 ml @ 200 mls/hr 1X ONCE IV Last administered on 14:35; Start 03/12/17 at 11:00; Stop 03/12/17 at 11:59; Status DC Ondansetron HCl (Zofran) 4 mg PRN Q6HRS PRN IV NAUSEA/VOMITING Last administered on 03/13/17 06:20; Start 03/12/17 at 12:45; Stop 03/13/17 at 12:44 ; Status DC Acetaminophen (Tylenol) 500 mg PRN Q6HRS PRN PO MILD PAIN / TEMP Last administered on 03/13/17 14:59; Start 03/12/17 at 12:45 Oxycodone/ Acetaminophen (Percocet 5/325) 1 tab PRN Q4HRS PRN PO PAIN Last administered on 03/13/17 11:27; Start 03/12/17 at 12:45 Sodium Chloride 1,000 ml @ 100 mls/hr 1X ONCE IV Last administered on 16:04; Start 03/12/17 at 12:45; Stop 03/12/17 at 22:44; Status DC Potassium Chloride (Klor-Con) 40 meq 1X ONCE PO Last administered on 16:03; Start 03/12/17 at 12:45; Stop 03/12/17 at 12:48; Status DC Chlordiazepoxide (Librium) 25 mg PRN Q6HRS PRN PO ANXIETY / AGITATION; Start at 12:45 Folic Acid (Folic Acid) 1 mg DAILY PO Last administered on 03/13/17 08:58; Start 03/12/17 at 13:00 Thiamine Mononitrate (Vitamin B-1) 100 mg DAILY PO Last administered on 08:58; Start 03/12/17 at 13:00 Vitamin B Complex (Folbic Tablet) 1 tab DAILY PO Last administered on 08:59; Start 03/12/17 at 13:00 Pantoprazole Sodium (Protonix) 40 mg DAILYAC PO Last administered on 03/14/17 06:30; Start 03/12/17 at 16:30 Ondansetron HCl (Zofran) 4 mg PRN Q6HRS PRN IV NAUSEA/VOMITING Last administered on 03/13/17 13:38; Start 03/13/17 at 13:30 Metoclopramide HCl (Reglan) 10 mg PRN Q6HRS PRN IV NAUSEA/VOMITING Last administered on 03/13/17 14:59; Start 03/13/17 at 13:30; Stop 03/13/17 at 18:25 ; Status DC Ciprofloxacin (Cipro) 500 mg BID PO Last administered on 03/13/17 21:02; Start 03/13/17 at 21:00 Lorazepam (Ativan) 1 mg 1X ONCE IV Last administered on 03/13/17 18:35; Start 03/13/17 at 18:30; Stop 03/13/17 at 18:31; Status DC Prochlorperazine Edisylate (Compazine) 10 mg PRN Q6HRS PRN IV NAUSEA/VOMITING Last administered on 03/14/17 08:08; Start 03/13/17 at 18:30 Vitals/I & O Vital Sign - Last 24 Hours 03/13/17 03/13/17 03/13/17 03/13/17 13:40 15:00 19:00 20:00 Temp 97.9 99.5 97.9 99.5 Pulse 52 58 Resp 16 16 B/P (MAP) 99/56 (70) 97/55 (69) Pulse Ox 100 99 99 O2 Delivery Room Air Room Air Room Air Room Air 03/13/17 03/14/17 03/14/17 03/14/17 23:00 03:00 07:00 07:45 Temp 98.5 98.0 97.7 98.5 98.0 97.7 Pulse 54 63 83 Resp 16 16 18 B/P (MAP) 110/61 (77) 100/52 (68) 109/64 (79) Pulse Ox 99 97 97 O2 Delivery Room Air Room Air Room Air Room Air 03/14/17 11:00 Temp 97.9 97.9 Pulse 65 Resp 16 B/P (MAP) 99/49 (66) Pulse Ox 97 O2 Delivery Room Air Intake and Output 03/14/17 03/14/17 03/15/17 15:00 23:00 07:00 Output Total 550 ml Balance -550 ml Problem List Problems Medical Problems: (1) Abdominal pain Status: Acute Assessment Abd pain- with possible colitis, nausea persists, if no improvement with medical therpay, hepatobiliary imaging and EGD next week ROCIO ZAMUDIO MD Mar 14, 2017 11:51
[2017-03-14] MEDS ORDERED: MAGNESIUM SULFATE 2GM 50 ML IV ONE (13:15)
[2017-03-14] MEDS ORDERED: POTASSIUM CHLORIDE 20 MEQ TABLET.ER. PO ONE (13:15)
--- NOTE | 2017-03-14 13:26 | PDOC ---
PROGRESS NOTES Chief Complaint Chief Complaint 1. MIld colitis 2. Micorcytic anemia 3. Signif etoh drinker (rum everyday) 4. Hypokalemia 5. Hypomagnesemia History of Present Illness History of Present Illness Still nausea and very minimal PO K low mAg low GI note reviewed, plans of likely EGD and cscope thursday bec of no improvement Off IV abx ON PO flagyl for the mild colitis on CT PLAN: MAg sulfate 2 gms IV x 1 Start K containing IVF Kcl 20 IV x 1 EGD nd c scope plans thursday ANti nausea meds Vitals Vitals Vital Signs Date Time Temp Pulse Resp B/P (MAP) Pulse Ox O2 Delivery O2 Flow Rate FiO2 03/14/17 11:00 97.9 65 16 99/49 (66) 97 Room Air 97.9 Physical Exam General: Alert, Oriented X3, Cooperative, No acute distress Heart: Regular rate Lungs: Clear Abdomen: Normal bowel sounds, Soft, Other (tender on suprapubic, lower abd area ) Extremities: No edema Skin: No rashes Labs LABS Laboratory Tests Test 03/13/17 13:25 03/14/17 04:40 Clostridium difficile Toxin (PCR) Negative (Negative) White Blood Count 8.7 x10^3/uL (4.0-11.0) Red Blood Count 3.77 x10^6/uL (3.50-5.40) Hemoglobin 9.1 g/dL (12.0-15.5) Hematocrit 28.4 % (36.0-47.0) Mean Corpuscular Volume 75 fL (79-100) Mean Corpuscular Hemoglobin 24 pg (25-35) Mean Corpuscular Hemoglobin Concent 32 g/dL (31-37) Red Cell Distribution Width 17.3 % (11.5-14.5) Platelet Count 258 x10^3/uL (140-400) Neutrophils (%) (Auto) 80 % (31-73) Lymphocytes (%) (Auto) 14 % (24-48) Monocytes (%) (Auto) 5 % (0-9) Eosinophils (%) (Auto) 1 % (0-3) Basophils (%) (Auto) 1 % (0-3) Neutrophils # (Auto) 7.0 x10^3uL (1.8-7.7) Lymphocytes # (Auto) 1.2 x10^3/uL (1.0-4.8) Monocytes # (Auto) 0.4 x10^3/uL (0.0-1.1) Eosinophils # (Auto) 0.1 x10^3/uL (0.0-0.7) Basophils # (Auto) 0.0 x10^3/uL (0.0-0.2) Sodium Level 139 mmol/L (136-145) Potassium Level 3.3 mmol/L (3.5-5.1) Chloride Level 105 mmol/L (98-107) Carbon Dioxide Level 23 mmol/L (21-32) Anion Gap 11 (6-14) Blood Urea Nitrogen 6 mg/dL (7-20) Creatinine 0.6 mg/dL (0.6-1.0) Estimated GFR (Cockcroft-Gault) 119.9 BUN/Creatinine Ratio 10 (6-20) Glucose Level 68 mg/dL (70-99) Calcium Level 8.2 mg/dL (8.5-10.1) Magnesium Level 1.7 mg/dL (1.8-2.4) Total Bilirubin 0.8 mg/dL (0.2-1.0) Aspartate Amino Transf (AST/SGOT) 13 U/L (15-37) Alanine Aminotransferase (ALT/SGPT) 18 U/L (14-59) Alkaline Phosphatase 37 U/L (46-116) Total Protein 6.0 g/dL (6.4-8.2) Albumin 3.2 g/dL (3.4-5.0) Albumin/Globulin Ratio 1.1 (1.0-1.7) Review of Systems Review of Systems nasuea, emesis, lower abd pain Assessment and Plan Assessmemt and Plan Problems Medical Problems: (1) Abdominal pain Status: Acute Problems: Comment Review of Relevant I have reviewed the following items daisy (where applicable) has been applied. Labs Laboratory Tests Test 03/13/17 05:45 03/13/17 13:25 03/14/17 04:40 White Blood Count 8.6 x10^3/uL (4.0-11.0) 8.7 x10^3/uL (4.0-11.0) Red Blood Count 3.88 x10^6/uL (3.50-5.40) 3.77 x10^6/uL (3.50-5.40) Hemoglobin 9.3 g/dL (12.0-15.5) 9.1 g/dL (12.0-15.5) Hematocrit 28.9 % (36.0-47.0) 28.4 % (36.0-47.0) Mean Corpuscular Volume 75 fL (79-100) 75 fL (79-100) Mean Corpuscular Hemoglobin 24 pg (25-35) 24 pg (25-35) Mean Corpuscular Hemoglobin Concent 32 g/dL (31-37) 32 g/dL (31-37) Red Cell Distribution Width 17.2 % (11.5-14.5) 17.3 % (11.5-14.5) Platelet Count 280 x10^3/uL (140-400) 258 x10^3/uL (140-400) Neutrophils (%) (Auto) 68 % (31-73) 80 % (31-73) Lymphocytes (%) (Auto) 26 % (24-48) 14 % (24-48) Monocytes (%) (Auto) 5 % (0-9) 5 % (0-9) Eosinophils (%) (Auto) 0 % (0-3) 1 % (0-3) Basophils (%) (Auto) 1 % (0-3) 1 % (0-3) Neutrophils # (Auto) 5.9 x10^3uL (1.8-7.7) 7.0 x10^3uL (1.8-7.7) Lymphocytes # (Auto) 2.2 x10^3/uL (1.0-4.8) 1.2 x10^3/uL (1.0-4.8) Monocytes # (Auto) 0.5 x10^3/uL (0.0-1.1) 0.4 x10^3/uL (0.0-1.1) Eosinophils # (Auto) 0.0 x10^3/uL (0.0-0.7) 0.1 x10^3/uL (0.0-0.7) Basophils # (Auto) 0.0 x10^3/uL (0.0-0.2) 0.0 x10^3/uL (0.0-0.2) Sodium Level 143 mmol/L (136-145) 139 mmol/L (136-145) Potassium Level 3.8 mmol/L (3.5-5.1) 3.3 mmol/L (3.5-5.1) Chloride Level 109 mmol/L (98-107) 105 mmol/L (98-107) Carbon Dioxide Level 26 mmol/L (21-32) 23 mmol/L (21-32) Anion Gap 8 (6-14) 11 (6-14) Blood Urea Nitrogen 5 mg/dL (7-20) 6 mg/dL (7-20) Creatinine 0.5 mg/dL (0.6-1.0) 0.6 mg/dL (0.6-1.0) Estimated GFR (Cockcroft-Gault) 148.0 119.9 BUN/Creatinine Ratio 10 (6-20) 10 (6-20) Glucose Level 83 mg/dL (70-99) 68 mg/dL (70-99) Calcium Level 8.5 mg/dL (8.5-10.1) 8.2 mg/dL (8.5-10.1) Total Bilirubin 1.0 mg/dL (0.2-1.0) 0.8 mg/dL (0.2-1.0) Aspartate Amino Transf (AST/SGOT) 16 U/L (15-37) 13 U/L (15-37) Alanine Aminotransferase (ALT/SGPT) 15 U/L (14-59) 18 U/L (14-59) Alkaline Phosphatase 37 U/L (46-116) 37 U/L (46-116) Total Protein 6.0 g/dL (6.4-8.2) 6.0 g/dL (6.4-8.2) Albumin 3.1 g/dL (3.4-5.0) 3.2 g/dL (3.4-5.0) Albumin/Globulin Ratio 1.1 (1.0-1.7) 1.1 (1.0-1.7) Clostridium difficile Toxin (PCR) Negative (Negative) Magnesium Level 1.7 mg/dL (1.8-2.4) Laboratory Tests Test 03/13/17 13:25 03/14/17 04:40 Clostridium difficile Toxin (PCR) Negative (Negative) White Blood Count 8.7 x10^3/uL (4.0-11.0) Red Blood Count 3.77 x10^6/uL (3.50-5.40) Hemoglobin 9.1 g/dL (12.0-15.5) Hematocrit 28.4 % (36.0-47.0) Mean Corpuscular Volume 75 fL (79-100) Mean Corpuscular Hemoglobin 24 pg (25-35) Mean Corpuscular Hemoglobin Concent 32 g/dL (31-37) Red Cell Distribution Width 17.3 % (11.5-14.5) Platelet Count 258 x10^3/uL (140-400) Neutrophils (%) (Auto) 80 % (31-73) Lymphocytes (%) (Auto) 14 % (24-48) Monocytes (%) (Auto) 5 % (0-9) Eosinophils (%) (Auto) 1 % (0-3) Basophils (%) (Auto) 1 % (0-3) Neutrophils # (Auto) 7.0 x10^3uL (1.8-7.7) Lymphocytes # (Auto) 1.2 x10^3/uL (1.0-4.8) Monocytes # (Auto) 0.4 x10^3/uL (0.0-1.1) Eosinophils # (Auto) 0.1 x10^3/uL (0.0-0.7) Basophils # (Auto) 0.0 x10^3/uL (0.0-0.2) Sodium Level 139 mmol/L (136-145) Potassium Level 3.3 mmol/L (3.5-5.1) Chloride Level 105 mmol/L (98-107) Carbon Dioxide Level 23 mmol/L (21-32) Anion Gap 11 (6-14) Blood Urea Nitrogen 6 mg/dL (7-20) Creatinine 0.6 mg/dL (0.6-1.0) Estimated GFR (Cockcroft-Gault) 119.9 BUN/Creatinine Ratio 10 (6-20) Glucose Level 68 mg/dL (70-99) Calcium Level 8.2 mg/dL (8.5-10.1) Magnesium Level 1.7 mg/dL (1.8-2.4) Total Bilirubin 0.8 mg/dL (0.2-1.0) Aspartate Amino Transf (AST/SGOT) 13 U/L (15-37) Alanine Aminotransferase (ALT/SGPT) 18 U/L (14-59) Alkaline Phosphatase 37 U/L (46-116) Total Protein 6.0 g/dL (6.4-8.2) Albumin 3.2 g/dL (3.4-5.0) Albumin/Globulin Ratio 1.1 (1.0-1.7) Microbiology 03/12/17 Wet Prep - Final, Complete Medications Current Medications Morphine Sulfate 2 mg PRN Q15MIN PRN IV/SQ PAIN GREATER THAN 3/10 Last administered on 03/12/17 08:02; Start 03/12/17 at 06:45; Stop 03/12/17 at 13:24 ; Status DC Sodium Chloride 1,000 ml @ 1,000 mls/hr Q1H IV Last administered on 03/12/17 06:44; Start 03/12/17 at 07:00; Stop 03/12/17 at 07:59; Status DC Iohexol (Omnipaque 240 Mg/ml) 30 ml 1X ONCE PO ; Start 03/12/17 at 07:45; Stop 03/12/17 at 07:51; Status DC Iohexol (Omnipaque 300 Mg/ml) 75 ml 1X ONCE IV Last administered on 03/12/17 07:45; Start 03/12/17 at 07:45; Stop 03/12/17 at 07:51; Status DC Info (Do NOT chart on this entry -- for MONITORING) 1 each PRN DAILY PRN MC SEE COMMENTS; Start 03/12/17 at 08:00; Stop 03/14/17 at 07:59; Status DC Ondansetron HCl (Zofran) 4 mg PRN Q8HRS PRN IV NAUSEA/VOMITING; Start 03/12/17 at 10:15; Stop 03/12/17 at 12:44; Status DC Morphine Sulfate 2 mg PRN Q2HR PRN IV PAIN Last administered on 03/12/17 12:49 ; Start 03/12/17 at 10:15; Stop 03/13/17 at 10:14; Status DC Ciprofloxacin/ Dextrose 200 ml @ 200 mls/hr Q12HR IV Last administered on 03/13 08:59; Start 03/12/17 at 21:00; Stop 03/13/17 at 17:46; Status DC Metronidazole 100 ml @ 100 mls/hr Q8HRS IV Last administered on 03/14/17 06: 30; Start 03/12/17 at 11:00; Stop 03/14/17 at 13:05; Status DC Ciprofloxacin/ Dextrose 200 ml @ 200 mls/hr 1X ONCE IV Last administered on 14:35; Start 03/12/17 at 11:00; Stop 03/12/17 at 11:59; Status DC Ondansetron HCl (Zofran) 4 mg PRN Q6HRS PRN IV NAUSEA/VOMITING Last administered on 03/13/17 06:20; Start 03/12/17 at 12:45; Stop 03/13/17 at 12:44 ; Status DC Acetaminophen (Tylenol) 500 mg PRN Q6HRS PRN PO MILD PAIN / TEMP Last administered on 03/13/17 14:59; Start 03/12/17 at 12:45 Oxycodone/ Acetaminophen (Percocet 5/325) 1 tab PRN Q4HRS PRN PO PAIN Last administered on 03/13/17 11:27; Start 03/12/17 at 12:45 Sodium Chloride 1,000 ml @ 100 mls/hr 1X ONCE IV Last administered on 16:04; Start 03/12/17 at 12:45; Stop 03/12/17 at 22:44; Status DC Potassium Chloride (Klor-Con) 40 meq 1X ONCE PO Last administered on 16:03; Start 03/12/17 at 12:45; Stop 03/12/17 at 12:48; Status DC Chlordiazepoxide (Librium) 25 mg PRN Q6HRS PRN PO ANXIETY / AGITATION; Start at 12:45 Folic Acid (Folic Acid) 1 mg DAILY PO Last administered on 03/13/17 08:58; Start 03/12/17 at 13:00 Thiamine Mononitrate (Vitamin B-1) 100 mg DAILY PO Last administered on 08:58; Start 03/12/17 at 13:00 Vitamin B Complex (Folbic Tablet) 1 tab DAILY PO Last administered on 08:59; Start 03/12/17 at 13:00 Pantoprazole Sodium (Protonix) 40 mg DAILYAC PO Last administered on 03/14/17 06:30; Start 03/12/17 at 16:30 Ondansetron HCl (Zofran) 4 mg PRN Q6HRS PRN IV NAUSEA/VOMITING Last administered on 03/13/17 13:38; Start 03/13/17 at 13:30 Metoclopramide HCl (Reglan) 10 mg PRN Q6HRS PRN IV NAUSEA/VOMITING Last administered on 03/13/17 14:59; Start 03/13/17 at 13:30; Stop 03/13/17 at 18:25 ; Status DC Ciprofloxacin (Cipro) 500 mg BID PO Last administered on 03/13/17 21:02; Start 03/13/17 at 21:00 Lorazepam (Ativan) 1 mg 1X ONCE IV Last administered on 03/13/17 18:35; Start 03/13/17 at 18:30; Stop 03/13/17 at 18:31; Status DC Prochlorperazine Edisylate (Compazine) 10 mg PRN Q6HRS PRN IV NAUSEA/VOMITING Last administered on 03/14/17 08:08; Start 03/13/17 at 18:30 Metronidazole (Flagyl) 500 mg Q8HRS PO ; Start 03/14/17 at 14:00 Potassium Chloride (Klor-Con) 40 meq 1X ONCE PO ; Start 03/14/17 at 13:15; Stop 03/14/17 at 13:16; Status DC Magnesium Sulfate/ Dextrose 50 ml @ 25 mls/hr 1X ONCE IV ; Start 03/14/17 at 13 :15; Stop 03/14/17 at 15:14 Vitals/I & O Vital Sign - Last 24 Hours 03/13/17 03/13/17 03/13/17 03/13/17 13:40 15:00 19:00 20:00 Temp 97.9 99.5 97.9 99.5 Pulse 52 58 Resp 16 16 B/P (MAP) 99/56 (70) 97/55 (69) Pulse Ox 100 99 99 O2 Delivery Room Air Room Air Room Air Room Air 03/13/17 03/14/17 03/14/17 03/14/17 23:00 03:00 07:00 07:45 Temp 98.5 98.0 97.7 98.5 98.0 97.7 Pulse 54 63 83 Resp 16 16 18 B/P (MAP) 110/61 (77) 100/52 (68) 109/64 (79) Pulse Ox 99 97 97 O2 Delivery Room Air Room Air Room Air Room Air 03/14/17 11:00 Temp 97.9 97.9 Pulse 65 Resp 16 B/P (MAP) 99/49 (66) Pulse Ox 97 O2 Delivery Room Air Intake and Output 03/14/17 03/14/17 03/15/17 15:00 23:00 07:00 Output Total 550 ml Balance -550 ml SANIA GREWAL MD Mar 14, 2017 13:26
[2017-03-14] MEDS: metroNIDAZOLE 500 MG TABLET PO SCH ×2 (14:00→21:05)
[2017-03-14] MEDS: POTASSIUM CL 20MEQ D5-0.45NACL 1,000 ML IV SCH (14:10)
[2017-03-14] MEDS: POTASSIUM CHLORIDE 10MEQ 100 ML IV SCH ×2 (14:14→17:15)
[2017-03-14 15:00] VITALS: BP 100/66
[2017-03-14 19:53] VITALS: BP 105/68
[2017-03-14] MEDS: ONDANSETRON PF 4 MG/2 ML VIAL. IV PRN (21:02)
[2017-03-14 23:16] VITALS: BP 98/55
[2017-03-15 03:20] VITALS: BP 103/63
[2017-03-15] MEDS: metroNIDAZOLE 500 MG TABLET PO SCH (06:26)
[2017-03-15] MEDS: POTASSIUM CL 20MEQ D5-0.45NACL 1,000 ML IV SCH (06:27)
[2017-03-15] MEDS: ONDANSETRON PF 4 MG/2 ML VIAL. IV PRN (06:32)
[2017-03-15 07:00] VITALS: BP 99/59
[2017-03-15] MEDS: PANTOPRAZOLE 40 MG TABLET.DR. PO SCH (09:58)
[2017-03-15] MEDS: CIPROFLOXACIN HCL 250 MG TABLET. PO SCH (09:59)
[2017-03-15] MEDS: FOLIC ACID 1 MG TABLET. PO SCH (09:59)
[2017-03-15] MEDS: THIAMINE 100 MG TABLET. PO SCH (09:59)
[2017-03-15] MEDS: VITAMIN B12,B9,B6 COMPLEX 1 TABLET. PO SCH (09:59)
[2017-03-15] MEDS: oxyCODONE/APAP 5/325 1 TAB TABLET PO PRN (10:07)
[2017-03-15 11:00] VITALS: BP 111/72
--- NOTE | 2017-03-15 13:15 | PDOC ---
PROGRESS NOTES Chief Complaint Chief Complaint 1. MIld colitis 2. Micorcytic anemia 3. Signif etoh drinker (rum everyday) 4. Hypokalemia 5. Hypomagnesemia History of Present Illness History of Present Illness Pt was in bed, pleasant, and conversant. She says her nausea has improved since yesterday. Discussed that GI mentioned EGD or some hepatobiliary imaging next week but pt was unaware of this. Pt sys GI told her that she could go home today. Possible D/C per GI today Vitals Vitals Vital Signs Date Time Temp Pulse Resp B/P (MAP) Pulse Ox O2 Delivery O2 Flow Rate FiO2 03/15/17 11:07 16 Room Air 03/15/17 11:00 97.7 66 111/72 (85) 100 97.7 Physical Exam General: Alert, Oriented X3, Cooperative, No acute distress Heart: Regular rate, Normal S1, Normal S2, No murmurs Lungs: Clear Abdomen: Normal bowel sounds, Soft Extremities: No clubbing, No cyanosis, No edema Skin: No rashes, No breakdown Review of Systems Review of Systems Pt complains of hunger Pt complains of fatigue Assessment and Plan Assessmemt and Plan Problems Medical Problems: (1) Abdominal pain Status: Acute 1. MIld colitis 2. Micorcytic anemia 3. Signif etoh drinker (rum everyday) 4. Hypokalemia 5. Hypomagnesemia Plan: Recheck labs if needed Possible D/C to home today per GI home meds PT/OT Appreciate subspecialty input Problems: Comment Review of Relevant I have reviewed the following items daisy (where applicable) has been applied. Labs Laboratory Tests Test 03/13/17 13:25 03/14/17 04:40 Clostridium difficile Toxin (PCR) Negative (Negative) White Blood Count 8.7 x10^3/uL (4.0-11.0) Red Blood Count 3.77 x10^6/uL (3.50-5.40) Hemoglobin 9.1 g/dL (12.0-15.5) Hematocrit 28.4 % (36.0-47.0) Mean Corpuscular Volume 75 fL (79-100) Mean Corpuscular Hemoglobin 24 pg (25-35) Mean Corpuscular Hemoglobin Concent 32 g/dL (31-37) Red Cell Distribution Width 17.3 % (11.5-14.5) Platelet Count 258 x10^3/uL (140-400) Neutrophils (%) (Auto) 80 % (31-73) Lymphocytes (%) (Auto) 14 % (24-48) Monocytes (%) (Auto) 5 % (0-9) Eosinophils (%) (Auto) 1 % (0-3) Basophils (%) (Auto) 1 % (0-3) Neutrophils # (Auto) 7.0 x10^3uL (1.8-7.7) Lymphocytes # (Auto) 1.2 x10^3/uL (1.0-4.8) Monocytes # (Auto) 0.4 x10^3/uL (0.0-1.1) Eosinophils # (Auto) 0.1 x10^3/uL (0.0-0.7) Basophils # (Auto) 0.0 x10^3/uL (0.0-0.2) Sodium Level 139 mmol/L (136-145) Potassium Level 3.3 mmol/L (3.5-5.1) Chloride Level 105 mmol/L (98-107) Carbon Dioxide Level 23 mmol/L (21-32) Anion Gap 11 (6-14) Blood Urea Nitrogen 6 mg/dL (7-20) Creatinine 0.6 mg/dL (0.6-1.0) Estimated GFR (Cockcroft-Gault) 119.9 BUN/Creatinine Ratio 10 (6-20) Glucose Level 68 mg/dL (70-99) Calcium Level 8.2 mg/dL (8.5-10.1) Magnesium Level 1.7 mg/dL (1.8-2.4) Total Bilirubin 0.8 mg/dL (0.2-1.0) Aspartate Amino Transf (AST/SGOT) 13 U/L (15-37) Alanine Aminotransferase (ALT/SGPT) 18 U/L (14-59) Alkaline Phosphatase 37 U/L (46-116) Total Protein 6.0 g/dL (6.4-8.2) Albumin 3.2 g/dL (3.4-5.0) Albumin/Globulin Ratio 1.1 (1.0-1.7) Microbiology 03/12/17 Wet Prep - Final, Complete Medications Current Medications Morphine Sulfate 2 mg PRN Q15MIN PRN IV/SQ PAIN GREATER THAN 3/10 Last administered on 03/12/17 08:02; Start 03/12/17 at 06:45; Stop 03/12/17 at 13:24 ; Status DC Sodium Chloride 1,000 ml @ 1,000 mls/hr Q1H IV Last administered on 03/12/17 06:44; Start 03/12/17 at 07:00; Stop 03/12/17 at 07:59; Status DC Iohexol (Omnipaque 240 Mg/ml) 30 ml 1X ONCE PO ; Start 03/12/17 at 07:45; Stop 03/12/17 at 07:51; Status DC Iohexol (Omnipaque 300 Mg/ml) 75 ml 1X ONCE IV Last administered on 03/12/17 07:45; Start 03/12/17 at 07:45; Stop 03/12/17 at 07:51; Status DC Info (Do NOT chart on this entry -- for MONITORING) 1 each PRN DAILY PRN MC SEE COMMENTS; Start 03/12/17 at 08:00; Stop 03/14/17 at 07:59; Status DC Ondansetron HCl (Zofran) 4 mg PRN Q8HRS PRN IV NAUSEA/VOMITING; Start 03/12/17 at 10:15; Stop 03/12/17 at 12:44; Status DC Morphine Sulfate 2 mg PRN Q2HR PRN IV PAIN Last administered on 03/12/17 12:49 ; Start 03/12/17 at 10:15; Stop 03/13/17 at 10:14; Status DC Ciprofloxacin/ Dextrose 200 ml @ 200 mls/hr Q12HR IV Last administered on 03/13 08:59; Start 03/12/17 at 21:00; Stop 03/13/17 at 17:46; Status DC Metronidazole 100 ml @ 100 mls/hr Q8HRS IV Last administered on 03/14/17 06: 30; Start 03/12/17 at 11:00; Stop 03/14/17 at 13:05; Status DC Ciprofloxacin/ Dextrose 200 ml @ 200 mls/hr 1X ONCE IV Last administered on 14:35; Start 03/12/17 at 11:00; Stop 03/12/17 at 11:59; Status DC Ondansetron HCl (Zofran) 4 mg PRN Q6HRS PRN IV NAUSEA/VOMITING Last administered on 03/13/17 06:20; Start 03/12/17 at 12:45; Stop 03/13/17 at 12:44 ; Status DC Acetaminophen (Tylenol) 500 mg PRN Q6HRS PRN PO MILD PAIN / TEMP Last administered on 03/13/17 14:59; Start 03/12/17 at 12:45 Oxycodone/ Acetaminophen (Percocet 5/325) 1 tab PRN Q4HRS PRN PO PAIN Last administered on 03/15/17 10:07; Start 03/12/17 at 12:45 Sodium Chloride 1,000 ml @ 100 mls/hr 1X ONCE IV Last administered on 16:04; Start 03/12/17 at 12:45; Stop 03/12/17 at 22:44; Status DC Potassium Chloride (Klor-Con) 40 meq 1X ONCE PO Last administered on 16:03; Start 03/12/17 at 12:45; Stop 03/12/17 at 12:48; Status DC Chlordiazepoxide (Librium) 25 mg PRN Q6HRS PRN PO ANXIETY / AGITATION; Start at 12:45 Folic Acid (Folic Acid) 1 mg DAILY PO Last administered on 03/15/17 09:59; Start 03/12/17 at 13:00 Thiamine Mononitrate (Vitamin B-1) 100 mg DAILY PO Last administered on 09:59; Start 03/12/17 at 13:00 Vitamin B Complex (Folbic Tablet) 1 tab DAILY PO Last administered on 09:59; Start 03/12/17 at 13:00 Pantoprazole Sodium (Protonix) 40 mg DAILYAC PO Last administered on 03/15/17 09:58; Start 03/12/17 at 16:30 Ondansetron HCl (Zofran) 4 mg PRN Q6HRS PRN IV NAUSEA/VOMITING Last administered on 03/15/17 06:32; Start 03/13/17 at 13:30 Metoclopramide HCl (Reglan) 10 mg PRN Q6HRS PRN IV NAUSEA/VOMITING Last administered on 03/13/17 14:59; Start 03/13/17 at 13:30; Stop 03/13/17 at 18:25 ; Status DC Ciprofloxacin (Cipro) 500 mg BID PO Last administered on 03/15/17 09:59; Start 03/13/17 at 21:00 Lorazepam (Ativan) 1 mg 1X ONCE IV Last administered on 03/13/17 18:35; Start 03/13/17 at 18:30; Stop 03/13/17 at 18:31; Status DC Prochlorperazine Edisylate (Compazine) 10 mg PRN Q6HRS PRN IV NAUSEA/VOMITING Last administered on 03/14/17 08:08; Start 03/13/17 at 18:30 Metronidazole (Flagyl) 500 mg Q8HRS PO Last administered on 03/15/17 06:26; Start 03/14/17 at 14:00 Potassium Chloride (Klor-Con) 40 meq 1X ONCE PO ; Start 03/14/17 at 13:15; Stop 03/14/17 at 13:25; Status DC Magnesium Sulfate/ Dextrose 50 ml @ 25 mls/hr 1X ONCE IV Last administered on 03/14/17 14:09; Start 03/14/17 at 13:15; Stop 03/14/17 at 15:14; Status DC Potassium Chloride/Dextrose/ Sod Cl 1,000 ml @ 80 mls/hr [id number] IV Last administered on 03/15/17 06:27; Start 03/14/17 at 14:00 Potassium Chloride 100 ml @ 100 mls/hr Q1H IV Last administered on 03/14/17 17:15; Start 03/14/17 at 14:00; Stop 03/14/17 at 15:59; Status DC Vitals/I & O Vital Sign - Last 24 Hours 03/14/17 03/14/17 03/14/17 03/14/17 15:00 19:53 20:00 23:16 Temp 98.1 98.1 98.2 98.1 98.1 98.2 Pulse 72 79 86 Resp 16 20 20 B/P (MAP) 100/66 (77) 105/68 (80) 98/55 (69) Pulse Ox 100 98 100 O2 Delivery Room Air Room Air Room Air Room Air 1003/15/17 03/15/17 03/15/17 03:20 07:00 08:00 10:07 Temp 97.9 97.1 97.9 97.1 Pulse 91 95 Resp 18 20 16 B/P (MAP) 103/63 (76) 99/59 (72) Pulse Ox 97 96 O2 Delivery Room Air Room Air Room Air Room Air 03/15/17 03/15/17 11:00 11:07 Temp 97.7 97.7 Pulse 66 Resp 20 16 B/P (MAP) 111/72 (85) Pulse Ox 100 O2 Delivery Room Air Room Air MELI RAMIREZ III DO Mar 15, 2017 13:15
--- NOTE | 2017-03-15 13:22 | PDOC ---
G I PROGRESS NOTE Reason for Follow-up Diarrhea/abd pain Subjective Feeling better/wants to go home Physical Exam Lungs clear CV S1 S2'ABD +BS, soft, nontender Review of Relevant I have reviewed the following items daisy (where applicable) has been applied. Labs Laboratory Tests Test 03/13/17 13:25 03/14/17 04:40 Clostridium difficile Toxin (PCR) Negative (Negative) White Blood Count 8.7 x10^3/uL (4.0-11.0) Red Blood Count 3.77 x10^6/uL (3.50-5.40) Hemoglobin 9.1 g/dL (12.0-15.5) Hematocrit 28.4 % (36.0-47.0) Mean Corpuscular Volume 75 fL (79-100) Mean Corpuscular Hemoglobin 24 pg (25-35) Mean Corpuscular Hemoglobin Concent 32 g/dL (31-37) Red Cell Distribution Width 17.3 % (11.5-14.5) Platelet Count 258 x10^3/uL (140-400) Neutrophils (%) (Auto) 80 % (31-73) Lymphocytes (%) (Auto) 14 % (24-48) Monocytes (%) (Auto) 5 % (0-9) Eosinophils (%) (Auto) 1 % (0-3) Basophils (%) (Auto) 1 % (0-3) Neutrophils # (Auto) 7.0 x10^3uL (1.8-7.7) Lymphocytes # (Auto) 1.2 x10^3/uL (1.0-4.8) Monocytes # (Auto) 0.4 x10^3/uL (0.0-1.1) Eosinophils # (Auto) 0.1 x10^3/uL (0.0-0.7) Basophils # (Auto) 0.0 x10^3/uL (0.0-0.2) Sodium Level 139 mmol/L (136-145) Potassium Level 3.3 mmol/L (3.5-5.1) Chloride Level 105 mmol/L (98-107) Carbon Dioxide Level 23 mmol/L (21-32) Anion Gap 11 (6-14) Blood Urea Nitrogen 6 mg/dL (7-20) Creatinine 0.6 mg/dL (0.6-1.0) Estimated GFR (Cockcroft-Gault) 119.9 BUN/Creatinine Ratio 10 (6-20) Glucose Level 68 mg/dL (70-99) Calcium Level 8.2 mg/dL (8.5-10.1) Magnesium Level 1.7 mg/dL (1.8-2.4) Total Bilirubin 0.8 mg/dL (0.2-1.0) Aspartate Amino Transf (AST/SGOT) 13 U/L (15-37) Alanine Aminotransferase (ALT/SGPT) 18 U/L (14-59) Alkaline Phosphatase 37 U/L (46-116) Total Protein 6.0 g/dL (6.4-8.2) Albumin 3.2 g/dL (3.4-5.0) Albumin/Globulin Ratio 1.1 (1.0-1.7) Microbiology 03/12/17 Wet Prep - Final, Complete Medications Current Medications Morphine Sulfate 2 mg PRN Q15MIN PRN IV/SQ PAIN GREATER THAN 3/10 Last administered on 03/12/17 08:02; Start 03/12/17 at 06:45; Stop 03/12/17 at 13:24 ; Status DC Sodium Chloride 1,000 ml @ 1,000 mls/hr Q1H IV Last administered on 03/12/17 06:44; Start 03/12/17 at 07:00; Stop 03/12/17 at 07:59; Status DC Iohexol (Omnipaque 240 Mg/ml) 30 ml 1X ONCE PO ; Start 03/12/17 at 07:45; Stop 03/12/17 at 07:51; Status DC Iohexol (Omnipaque 300 Mg/ml) 75 ml 1X ONCE IV Last administered on 03/12/17 07:45; Start 03/12/17 at 07:45; Stop 03/12/17 at 07:51; Status DC Info (Do NOT chart on this entry -- for MONITORING) 1 each PRN DAILY PRN MC SEE COMMENTS; Start 03/12/17 at 08:00; Stop 03/14/17 at 07:59; Status DC Ondansetron HCl (Zofran) 4 mg PRN Q8HRS PRN IV NAUSEA/VOMITING; Start 03/12/17 at 10:15; Stop 03/12/17 at 12:44; Status DC Morphine Sulfate 2 mg PRN Q2HR PRN IV PAIN Last administered on 03/12/17 12:49 ; Start 03/12/17 at 10:15; Stop 03/13/17 at 10:14; Status DC Ciprofloxacin/ Dextrose 200 ml @ 200 mls/hr Q12HR IV Last administered on 03/13 08:59; Start 03/12/17 at 21:00; Stop 03/13/17 at 17:46; Status DC Metronidazole 100 ml @ 100 mls/hr Q8HRS IV Last administered on 03/14/17 06: 30; Start 03/12/17 at 11:00; Stop 03/14/17 at 13:05; Status DC Ciprofloxacin/ Dextrose 200 ml @ 200 mls/hr 1X ONCE IV Last administered on 14:35; Start 03/12/17 at 11:00; Stop 03/12/17 at 11:59; Status DC Ondansetron HCl (Zofran) 4 mg PRN Q6HRS PRN IV NAUSEA/VOMITING Last administered on 03/13/17 06:20; Start 03/12/17 at 12:45; Stop 03/13/17 at 12:44 ; Status DC Acetaminophen (Tylenol) 500 mg PRN Q6HRS PRN PO MILD PAIN / TEMP Last administered on 03/13/17 14:59; Start 03/12/17 at 12:45 Oxycodone/ Acetaminophen (Percocet 5/325) 1 tab PRN Q4HRS PRN PO PAIN Last administered on 03/15/17 10:07; Start 03/12/17 at 12:45 Sodium Chloride 1,000 ml @ 100 mls/hr 1X ONCE IV Last administered on 16:04; Start 03/12/17 at 12:45; Stop 03/12/17 at 22:44; Status DC Potassium Chloride (Klor-Con) 40 meq 1X ONCE PO Last administered on 16:03; Start 03/12/17 at 12:45; Stop 03/12/17 at 12:48; Status DC Chlordiazepoxide (Librium) 25 mg PRN Q6HRS PRN PO ANXIETY / AGITATION; Start at 12:45 Folic Acid (Folic Acid) 1 mg DAILY PO Last administered on 03/15/17 09:59; Start 03/12/17 at 13:00 Thiamine Mononitrate (Vitamin B-1) 100 mg DAILY PO Last administered on 09:59; Start 03/12/17 at 13:00 Vitamin B Complex (Folbic Tablet) 1 tab DAILY PO Last administered on 09:59; Start 03/12/17 at 13:00 Pantoprazole Sodium (Protonix) 40 mg DAILYAC PO Last administered on 03/15/17 09:58; Start 03/12/17 at 16:30 Ondansetron HCl (Zofran) 4 mg PRN Q6HRS PRN IV NAUSEA/VOMITING Last administered on 03/15/17 06:32; Start 03/13/17 at 13:30 Metoclopramide HCl (Reglan) 10 mg PRN Q6HRS PRN IV NAUSEA/VOMITING Last administered on 03/13/17 14:59; Start 03/13/17 at 13:30; Stop 03/13/17 at 18:25 ; Status DC Ciprofloxacin (Cipro) 500 mg BID PO Last administered on 03/15/17 09:59; Start 03/13/17 at 21:00 Lorazepam (Ativan) 1 mg 1X ONCE IV Last administered on 03/13/17 18:35; Start 03/13/17 at 18:30; Stop 03/13/17 at 18:31; Status DC Prochlorperazine Edisylate (Compazine) 10 mg PRN Q6HRS PRN IV NAUSEA/VOMITING Last administered on 03/14/17 08:08; Start 03/13/17 at 18:30 Metronidazole (Flagyl) 500 mg Q8HRS PO Last administered on 03/15/17 06:26; Start 03/14/17 at 14:00 Potassium Chloride (Klor-Con) 40 meq 1X ONCE PO ; Start 03/14/17 at 13:15; Stop 03/14/17 at 13:25; Status DC Magnesium Sulfate/ Dextrose 50 ml @ 25 mls/hr 1X ONCE IV Last administered on 03/14/17 14:09; Start 03/14/17 at 13:15; Stop 03/14/17 at 15:14; Status DC Potassium Chloride/Dextrose/ Sod Cl 1,000 ml @ 80 mls/hr [id number] IV Last administered on 03/15/17 06:27; Start 03/14/17 at 14:00 Potassium Chloride 100 ml @ 100 mls/hr Q1H IV Last administered on 03/14/17 17:15; Start 03/14/17 at 14:00; Stop 03/14/17 at 15:59; Status DC Vitals/I & O Vital Sign - Last 24 Hours 03/14/17 03/14/17 03/14/17 03/14/17 15:00 19:53 20:00 23:16 Temp 98.1 98.1 98.2 98.1 98.1 98.2 Pulse 72 79 86 Resp 16 20 20 B/P (MAP) 100/66 (77) 105/68 (80) 98/55 (69) Pulse Ox 100 98 100 O2 Delivery Room Air Room Air Room Air Room Air 03/15/17 03/15/17 03/15/17 03/15/17 03:20 07:00 08:00 10:07 Temp 97.9 97.1 97.9 97.1 Pulse 91 95 Resp 18 20 16 B/P (MAP) 103/63 (76) 99/59 (72) Pulse Ox 97 96 O2 Delivery Room Air Room Air Room Air Room Air 03/15/17 03/15/17 11:00 11:07 Temp 97.7 97.7 Pulse 66 Resp 20 16 B/P (MAP) 111/72 (85) Pulse Ox 100 O2 Delivery Room Air Room Air Problem List Problems Medical Problems: (1) Abdominal pain Status: Acute Assessment Abd pain- improving,, most likely acute infectious enteritis, stable for release from GI standpoint today ROCIO ZAMUDIO MD Mar 15, 2017 13:22
[2017-03-15] MEDS ORDERED: ONDANSETRON ODT 4 MG TAB.RAPDIS. PO PRN (14:30)
== END 2017-03-15 14:40 | disposition home or self-care (01) | DRG 392 ==
LOC: ER 06:00 → 4 NORTH 10:10 → OBSVTOIN 03-13 09:57
PROVIDERS: ADMIT Internal Medicine; ATTEND Internal Medicine
DX: A09 Infectious gastroenteritis and colitis, unspecified (principal); K55.9 Vascular disorder of intestine, unspecified; E83.42 Hypomagnesemia; D50.9 Iron deficiency anemia, unspecified; E87.6 Hypokalemia; F10.10 Alcohol abuse, uncomplicated; G43.909 Migraine, unspecified, not intractable, without status migrainosus; K21.9 Gastro-esophageal reflux disease without esophagitis; Z82.49 Family history of ischemic heart disease and other diseases of the circulatory system
CPT/HCPCS: 36415; 74177; 76856; 80048; 80053; 80076; 80307; 81001; 81025; 82553; 83540; 83550; 83690; 83735; 85025; 85651; 87045; 87324; 87491; 87591; 96361; 96374; G0378; G0379; J0744; J0780; J2060; J2270; J2405; J2765; J3480; J3490; J7030; J7060; Q0111; Q9967; 99285-25; G0479

== ENCOUNTER → 2017-05-01 | Day surgery (SDC) | payer BC ==
[~2017-05-01] MED LIST: HYDROmorphone 2 MG/ML VIAL IV PRN; IV RINGERS,LACTATED 1000ML 1,000 ML IV SCH; LIDOCAINE 1% PF 2 ML VIAL. ID PRN; MELA3TAB2 PO; MORPHINE SULFATE 4 MG/ML DISP.SYRIN. IV PRN; ONDANSETRON PF 4 MG/2 ML VIAL. IV PRN; PROCHLORPERAZINE 10 MG/2 ML VIAL. IV PRN; PROPOFOL 40 ML IV ONE; fentaNYL PF VIAL 100 MCG/2 ML VIAL IV PRN; fentaNYL PF VIAL 100 MCG/2 ML VIAL ONE
[2017-05-01 07:30] LABS: NEG OBC UR NEG; POS OBC UR POS
[2017-05-01 08:55] VITALS: BP 106/74
--- NOTE | 2017-05-06 10:11 | PATHOLOGY ---
PATHOLOGY REPORT * * * * * * * * FINAL DIAGNOSIS: A. Duodenal biopsy: - No significant pathologic abnormalities. B. Random colon biopsy: - Mild active colitis, with multiple, focally hyperplastic, mucosal-associated lymphoid aggregates. COMMENT: Sections of the duodenal biopsy reveal multiple segments of duodenal and small intestine mucosa. Where best oriented, the mucosal villi appear normal. There are no sprue-like changes or significant inflammatory changes. Sections of the random colon biopsy reveal multiple segments of colonic mucosa showing patchy, mild active inflammation within the upper lamina propria beneath the surface epithelium. There are multiple mucosal-associated lymphoid aggregates, some of which are enlarged and hyperplastic. There is no basal lymphoplasmacytic infiltrate. There is no acute cryptitis, crypt abscesses, or crypt architectural distortion. The differential diagnosis includes an infectious type colitis, drug-induced colitis, or early inflammatory bowel disease. Correlate clinically. The case is also examined by Dr. Finney, who concurs with the diagnosis. (JPM:mgr/estella; 05/04/2017) REPORT ELECTRONICALLY SIGNED BY: Lauri Early M.D. DATE/TIME: 05/06/2017 10:10 * * * * * * * * GROSS PATHOLOGY: A. Received in formalin labeled "Neva Chahal duodenal BX," are 8 segments of becerra soft tissue measuring 1.9 x 1.3 x 0.3 cm in aggregate dimensions and ranging from 0.3 to 0.5 cm in maximum dimension. The specimen is submitted entirely in cassette A1. B. Received in formalin labeled "Neva Chahal, random colon BX," are multiple (more than 10) segments of becerra soft tissue measuring 2.6 x 0.5 x 0.4 cm in aggregate dimensions and ranging from 0.1 to 0.3 cm in maximum dimension. The specimen is submitted entirely in cassette B1. (TSD; 05/01/2017) INITIAL CPT CODE(S): A; 32695 B; 54363 Professional services performed by [facility] at [address] [address] Technical services performed by [facility] at [address] [place] [address], [address], [place] [address]. SPECIMEN(S) RECEIVED: A.Duodenal biopsy B.Random colon biopsy CLINICAL HISTORY: Diarrhea; r/o celiac disease, chronic diarrhea PATIENT: NEVA CHAHAL /AGE: 8 1990 (Age: 27) PATIENT #: [id number] ALT CASE #: SPECIMEN COLLECTION DATE: 05/01/2017 SPECIMEN RECEIVED DATE: 05/01/2017 [facility] - [id number] [address] - PHONE: [phone] * * * END OF REPORT * * *
== END | disposition home or self-care (01) ==
LOC: ENDOS 06:58
PROVIDERS: ATTEND Internal Medicine Gastroenterology
DX: K64.0 First degree hemorrhoids (principal); K29.50 Unspecified chronic gastritis without bleeding; K31.89 Other diseases of stomach and duodenum; F10.10 Alcohol abuse, uncomplicated; Z82.49 Family history of ischemic heart disease and other diseases of the circulatory system; K21.9 Gastro-esophageal reflux disease without esophagitis; E87.6 Hypokalemia; E83.42 Hypomagnesemia; D50.9 Iron deficiency anemia, unspecified; G43.909 Migraine, unspecified, not intractable, without status migrainosus
CPT/HCPCS: 43239; 45380; 81025; 88305; J2704; J3010